=== PATIENT | female | born 1970 | race Caucasian/White ===

== ENCOUNTER 2019-05-30 09:22 | Outpatient (CLI) | payer MEDICAID, SELFPAY ==
--- NOTE | 2019-05-30 | CT_ITS ---
Radation Therapy Planning CT images; total exam DLP: 564.48 mGy-cm MTDD
--- NOTE | 2019-05-30 12:50 | ONCRAD EPV_ITS ---
Radiation Oncology Established Patient Visit Patient: GUERLINE MR#: [id number] : 1970> Age: 48> Sex: Female> Dictated by: Dr. Mumtaz Goodman Date of Service: 05/30/2019 Referring Physician(s): Dr. 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 PET/CT showed markedly FDG avid mass involving the left epiglottis extending into the left aryepiglottic fold and a prominent right level 2A cervical lymph node measuring up to 1 cm in short axis with mildly increased FDG uptake. The patient underwent ultrasound-guided FNA of bilateral cervical lymph nodes at [facility] on April 16, 2019. Pathology showed lymphoid component with no evidence for metastatic carcinoma. Therefore the staging is T2, N0, M0. She was evaluated by Dr. Alexander, head and neck surgeon at [facility]. He recommended organ preserving therapy with definitive radiation therapy and did not recommend surgical resection due to significant concern of aspiration given her COPD. The patient notes sore throat, hoarseness, dysphagia, ear pain and a mild fatigue. She denies choking, aspiration or difficulty breathing. Current Medications: Furosemide, lisinopril, metoprolol Tartrate, montelukast Sodium, potassium, spiriva HandiHaler. Allergies: Codeine Sulfate. Current Complaints / Review of Systems: Constitutional - Complains of mild fatigue. Denies lack of appetite, fever, night sweats and change in weight. Eyes - Denies blurred vision. ENMT - Complains of dysphagia and ear pain in both ears. Denies problems with hearing, mouth dryness, stomatitis, altered taste and tinnitus. Has hoarseness to the voice which is the same as when she saw us 03/27/19. Neck - Denies neck pain and swelling of the neck. Integumentary - Denies rash. Breasts - Denies pain. Cardiovascular - Denies arrhythmias, chest pain and edema. Respiratory - Complains of cough related to sinus drainage. Denies dyspnea, hemoptysis, hiccoughs and wheezing. Gastrointestinal - Denies abdominal pain, constipation, diarrhea, heartburn / dyspepsia, melena / GI bleeding, nausea and vomiting. Genitourinary (F) - Denies dysuria, frequency, nocturia, urgency, vaginal discharge / bleeding and vaginal spotting. Musculoskeletal - Denies bone pain and joint pain. Neurologic - Complains of headaches occasionally. Denies dizziness and abnormal gait. Endocrine - Denies diabetes and thyroid disease. Hematologic/Lymphatic - Denies tender or enlarged lymph nodes.. Vital Signs: Performed on 05/30/2019 9:45 AM BMI - 38.357 kg/m2 (high), Height - 61.00 in, Weight - 203.0 lbs, Temperature - 98.1 f, Pulse - 90, Respiration - 20, O2 Sat - 95 % (low), Pain - 7 and BP - 95/ 65 mm(hg). Physical Exam: General: Alert and oriented x 3. No acute distress. HEENT: Normocephalic, atraumatic. Extraocular Movements Intact: Pupils Equal, Round, Reactive to Light and Accommodation: Sclerae anicteric. Oral cavity is clear without lesions, masses or ulcers. NECK: Supple without supraclavicular or jugular lymphadenopathy. LUNGS: Decreased breath sound to auscultation bilaterally without rales, rhonchi or wheeze. HEART: Regular rate and rhythm, normal S1 and S2 without murmur, gallop or rub. MUSCULOSKELETAL: No tenderness or percussion pain over the axial skeleton, scapulae or pelvis. ABDOMEN: Soft, nontender, nondistended without masses or organomegaly. Bowel sounds are present. EXTREMITIES: No peripheral edema is identified. Limited motor and sensory examination are grossly intact and symmetric bilaterally. NEUROLOGIC: Cranial nerves II ???XII are grossly intact. Normal sensation, strength 5/5 in all extremities, normal gait, no ataxia. Performance Status: 0 - Fully active, able to carry on all predisease activities without restrictions. (ECOG) Lab: None pending. 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 Surgical resection was not recommended due to significant concern of aspiration given her COPD. Plan: I concur with the recommendation from [facility] and recommended definitive radiotherapy using DAHANCA regimen (accelerated fractionation with 6 fractions per week) according to NCCN guideline. The patient has already obtained dental clearance at [facility]. I went over the procedure for radiation therapy to the head and neck with the patient. The benefit, risks and potential side effects of radiotherapy to the head & neck were explained to the patient. The potential side effects include but not limited to fatigue, skin reaction, sore throat/mouth, nausea/vomiting, altered taste, dry mouth, lowered blood counts, hoarseness, dehydration, weight loss, compromised thyroid function, fibrosis, dental caries, swallowing impairment/aspiration, damage to the mandibular bone (osteoradionecrosis), vessels, spinal cord, brain/brain stem, hearing and esophagus, and secondary malignancy. Ms Mary expressed good understanding and decided to proceed with the recommended treatment. She has signed an informed consent. She will undergo CT simulation today. Signed by: 05/30/2019 12:49:18 PM <<Signature on File>> CPT Code: CPT Code: Signed By: Dr. Mumtaz Goodman, 05/30/2019 12:49:19 PM <<Signature on File>>
== END 2019-05-30 09:23 | disposition home or self-care (01) ==
LOC: ONCMED 09:25
PROVIDERS: Family Provider Nurse Practitioner Family; PCP Nurse Practitioner Family; Visit Provider Radiology Radiation Oncology
DX: C32.1 Malignant neoplasm of supraglottis (principal); J44.9 Chronic obstructive pulmonary disease, unspecified
CPT/HCPCS: 77263; 77290; 77334; 99215; Q9967

== ENCOUNTER 2019-06-20 05:48 | Outpatient (RCR) | payer MEDICAID, SELFPAY ==
--- NOTE | 2019-06-06 12:57 | ONCRAD TMN_ITS ---
Radiation Oncology Weekly Treatment Management Patient: Sharon Mary MR#: [id number] : 1970> Age: 48> Sex: Female Dictated by: Dr. Mumtaz Goodman Date of Service: 06/04/2019 Referring Physician(s) : Dr. 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 ID: [id number], Energy: 6X, Dose/Fx (cGy): 200, #Fx: , Dose Correction (cGy): 0, Total Dose (cGy): 200, Start Date: 06/04/2019, Elapsed Days: 0 Current Complaints/Interval History: Constitutional Denies lack of appetite, fatigue, fever, night sweats and change in weight. ENMT Complains of odynophagia, dysphagia and hoarseness. Denies ear pain, mouth dryness, stomatitis and altered taste. Neck Denies neck pain. Current Medications: Furosemide, lisinopril, metoprolol Tartrate, montelukast Sodium, potassium, spiriva HandiHaler. Allergies: Codeine Sulfate. Vital Signs: Performed on 06/04/2019 4:11 PM BMI - 38.281 kg/m2 (high), Height - 61.00 in, Weight - 202.6 lbs, Temperature - 98.8 f, Pulse - 79, Respiration - 20, O2 Sat - 97 %, Pain - 0 and BP - 114/ 73 mm(hg). Physical Exam: Appears stable, no skin erythema or desquamation. Performance Status: 0 - Fully active, able to carry on all predisease activities without restrictions. (ECOG) Lab: None pending in Radiation Oncology. Imaging: No new diagnostic imaging was performed since the last weekly treatment visit. All radiation therapy related imaging (including but not limited to CBCT generated images) was reviewed. Appropriate changes, if any, were made to assure accurate target localization. Impression/Plan: Started RT today, Tolerating treatment well. Continue treatment as planned. CPT: 44296 Signed by: Dr. Mumtaz Goodman>06/06/2019 12:55:28 PM <<Signature on File>>
--- NOTE | 2019-06-10 17:47 | ONCRAD TMN_ITS ---
Radiation Oncology Weekly Treatment Management Patient: Sharon Mary MR#: [id number] : 1970> Age: 48> Sex: Female Dictated by: Dr. Mumtaz Goodman Date of Service: 06/10/2019 Referring Physician(s) : Dr. 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 ID: [id number], Energy: 6X, Dose/Fx (cGy): 200, #Fx: / 30, Dose Correction (cGy): 0, Total Dose (cGy): 1,000, Start Date: 06/04/2019, Elapsed Days: 6 Current Complaints/Interval History: Constitutional Complains of mild fatigue. Denies lack of appetite, fever, night sweats and change in weight. ENMT Complains of sore throat, dysphagia, left ear pain and mouth dryness. Denies problems with hearing, sore mouth and altered taste. Neck Denies neck pain. Integumentary No redness to the neck Current Medications: Furosemide, lisinopril, metoprolol Tartrate, montelukast Sodium, potassium, spiriva HandiHaler. Allergies: Codeine Sulfate. Vital Signs: Performed on 06/10/2019 2:42 PM BMI - 38.357 kg/m2 (high), Height - 61.00 in, Weight - 203.0 lbs, Temperature - 97.9 f, Pulse - 88, Respiration - 20, O2 Sat - 97 %, Pain - 4 and BP - 110/ 73 mm(hg). Physical Exam: Appears stable, no skin erythema or desquamation. Performance Status: 0 - Fully active, able to carry on all predisease activities without restrictions. (ECOG) Lab: None pending in Radiation Oncology. Imaging: No new diagnostic imaging was performed since the last weekly treatment visit. All radiation therapy related imaging (including but not limited to CBCT generated images) was reviewed. Appropriate changes, if any, were made to assure accurate target localization. Impression/Plan: Tolerating treatment well with expected side effects. Continue treatment as planned. Rx: magic mouth wash CPT: 52436 Signed by: Dr. Mumtaz Goodman>06/10/2019 5:45:57 PM <<Signature on File>>
--- NOTE | 2019-06-18 16:07 | ONCRAD TMN_ITS ---
Radiation Oncology Weekly Treatment Management Patient: Sharon Mary MR#: [id number] : 1970> Age: 48> Sex: Female Dictated by: Dr. Mumtaz Goodman Date of Service: 06/18/2019 Referring Physician(s) : Dr. 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 ID: [id number], Energy: 6X, Dose/Fx (cGy): 200, #Fx: , Dose Correction (cGy): 0, Total Dose (cGy): 2,200, Start Date: 06/04/2019, Elapsed Days: 14 Current Complaints/Interval History: Constitutional Complains of severe fatigue. Complains of change in weight down 2.8 lbs. since last OTV. Denies lack of appetite but hurts to swallow, fever and night sweats. ENMT Complains of significant sore throat, dysphagia and odynophagia. Complains of mouth dryness and thick sputum hard to cough up. Complains of altered taste. Denies ear pain. Neck Complains of neck pain. Integumentary Has redness to the neck Current Medications: Furosemide, lisinopril, magic Mouthwash, metoprolol Tartrate, montelukast Sodium, potassium, spiriva HandiHaler. Allergies: Codeine Sulfate. Vital Signs: Performed on 06/18/2019 2:46 PM BMI - 37.828 kg/m2 (high), Height - 61.00 in, Weight - 200.2 lbs, Temperature - 97.9 f, Pulse - 87, Respiration - 20, O2 Sat - 97 %, Pain - 10 and BP - 118/ 75 mm(hg). Physical Exam: Appears stable, mild skin erythema w/o desquamation. Performance Status: 0 - Fully active, able to carry on all predisease activities without restrictions. (ECOG) Lab: None pending in Radiation Oncology. Imaging: No new diagnostic imaging was performed since the last weekly treatment visit. All radiation therapy related imaging (including but not limited to CBCT generated images) was reviewed. Appropriate changes, if any, were made to assure accurate target localization. Impression/Plan: Tolerating treatment well with expected side effects. Continue treatment as planned. Rx: liquid hydrocodone; continue magic mouth wash; scheduled for PEG feeding tube placement on Sunday. CPT: 01217 Signed by: Dr. Mumtaz Goodman>06/18/2019 4:06:59 PM <<Signature on File>>
== END 2019-06-20 23:59 | disposition home or self-care (01) ==
LOC: ONCMED 05:48
PROVIDERS: Family Provider Nurse Practitioner Family; PCP Nurse Practitioner Family; Visit Provider Radiology Radiation Oncology
DX: Z51.0 Encounter for antineoplastic radiation therapy (principal); C32.1 Malignant neoplasm of supraglottis; L58.0 Acute radiodermatitis; Y84.2 Radiological procedure and radiotherapy as the cause of abnormal reaction of the patient, or of later complication, without mention of misadventure at the time of the procedure; M54.2 Cervicalgia; Z79.891 Long term (current) use of opiate analgesic
CPT/HCPCS: 36591; 77014; 77280; 77300; 77301; 77336; 77338; 77386; 77427

== ENCOUNTER 2019-06-23 07:48 | Day surgery (SDC) | payer MEDICAID, SELFPAY ==
[2019-06-20 14:45] VITALS: BMI 37.5
--- NOTE | 2019-06-23 08:03 | PM.HPUD ---
H&P update H&P Update: DATE OF SURGERY/PROCEDURE: 06/23/19 DATE H&P PERFORMED: 06/16/19 H&P UPDATE INFORMATION: H&P completed within last 30 days and No changes to prior documentation PLANNED PROCEDURE: Operation Date: 06/23/19 09:10 Proposed Procedures p Gastric Tube Insertion 82886 C32.1(Not Applicable) - Moshe Bahena MD Full H&P Perinent History: Medical/Surgical History: Medical History (Updated 06/16/19 @ 13:26 by Moshe Bahena MD) COPD (chronic obstructive pulmonary disease) (Acute) Hypertension (Acute) Malignant neoplasm of supraglottis (Acute) Family History: Family History (Updated 06/16/19 @ 12:58 by Akilah Nowak RN) Denies family history of Anesthesia complication Bleeding disorder Social History: Social History Smoking and tobacco status: former smoker Quit status (tobacco): has quit using tobacco Second hand smoke exposure: Yes Alcohol intake: never Desire information about alcohol rehabilitation?: No Adopted: No Caregiver/support person: Yes Lives independently: Yes Household members: family Housing: House Marital status: Single Highest education level completed: High School Graduate service: No Current occupational status: unemployed Current occupational exposures/hazards: No Pets and animals: No History of recent travel: No Sexually active: No Current gender identity: Female Britt/Religious: Faith Special britt needs: No Agree to transfusion: No Financial difficulty paying for basics: Decline to Answer
[2019-06-23 08:11] VITALS: BP 114/80; PULSE 103; RESP 18; TEMP 37; O2SAT 94
--- NOTE | 2019-06-23 08:37 | P.ANESASSM_ITS ---
Pre-Anesthetic Assessment Pre-Anesthetic Assessment: Height/Weight: Height 1.55 m Weight 90.265 kg Temp Pulse Resp BP Pulse Ox 98.6 F 103 H 18 114/80 94 06/23/19 08:11 06/23/19 08:11 06/23/19 08:11 06/23/19 08:11 06/23/19 08:11 Preop Diagnosis: PEG Proposed Procedure: Operation Date: 06/23/19 09:10 Proposed Procedures p Gastric Tube Insertion 34098 C32.1(Not Applicable) - Moshe Bahena MD Last intake: Intake Last Liquid Date 06/23/19 Last Liquid Time 06:00 Last Solid Date 06/21/19 Last Solid Time 00:00 Social: Packs per day: 1/2 Pack years: 16 Exam: Pre-Anes Outpt Exam: alert and oriented x 3 Airway: Submandibular: Other Cervical ROM: Other MP: 3 Pulmonary: Pulmonary: COPD and Sleep apnea Comments: Home 02 2lpm x 3 months CV/HEM: CV/HEM: HTN Musc/skel: Musc/skel: Lower Back Pain Neuropsych: Neuropsych: LÓPEZ PFSH Anesthesia PFSH: Social History Smoking and tobacco status: former smoker Quit status (tobacco): has quit using tobacco Second hand smoke exposure: Yes Alcohol intake: never Desire information about alcohol rehabilitation?: No Adopted: No Caregiver/support person: Yes Lives independently: Yes Household members: family Housing: House Marital status: Single Highest education level completed: High School Graduate service: No Current occupational status: unemployed Current occupational exposures/hazards: No Pets and animals: No History of recent travel: No Sexually active: No Current gender identity: Female Britt/Hinduism: Anglican Special britt needs: No Agree to transfusion: No Financial difficulty paying for basics: Decline to Answer Data Anesthesia Cardiac Studies: No Data to Display
[2019-06-23] MEDS: sodium chloride 0.9% 1,000 ML 30 ML IV ×2 (08:57→10:02)
[2019-06-23] MEDS: lidocaine 1% INJ 20 mL SUBCUT (10:57)
[2019-06-23 11:14] VITALS: BP 119/85; PULSE 113; RESP 16; TEMP 36.9; O2SAT 97
--- NOTE | 2019-06-23 11:34 | P.OP_ITS ---
Operative Report Date of procedure: June 23, 2019 Pre-op Diagnosis: Supraglottic cancer currently on radiation with dysphagia Post-op diagnosis: same Procedure Done: Percutaneous endoscopic gastrostomy tube placement Implants: 20 Salvadorean Endovive gastrostomy tube Pathology: none sent Surgeon: Moshe Bahena Anesthesia: MAC Condition: stable Disposition: same day Procedure: The patient was taken to the Operating Room and was placed under monitored anesthesia care after antibiotic had been administered. A bite block was placed and Olympus gastroscope was introduced and advanced up to the stomach and the first portion of the duodenum. There were no abnormalities noted in the esophagus, stomach and duodenum. The site for the planned PEG was confirmed in the left upper quadrant with transillumination using gastroscope noted through the abdominal wall and indentation of the abdominal wall noted on the gastroscope. This site was marked, and total of 5 milliliters of 1% lidocaine was infiltrated. An 11-blade was used to make a stab incision. An introducer needle was passed through the abdominal wall into the gastric lumen and the needle removed and the needle removed and the sheath left behind. A guidewire was passed through the introducer needle into the gastric lumen and grasped with a snare attached to the gastroscope. The gastroscope was withdrawn along with the guidewire, which was attached to the 20-Salvadorean EndoVive PEG tube. The guidewire was then pulled through the abdominal wall along with the PEG through the mouth into the gastric lumen until the inner disc was noted to stand against the gastric wall. The gastroscope was reintroduced to confirm good position. The outer disc was then attached and the two way valve was fixed to the PEG tube. The outer disc was noted to be at 4 centimeters at the skin level. Sterile dressing and abdominal binder was placed. The patient was stable throughout the procedure.
[2019-06-23 11:43] VITALS: BP 125/77; PULSE 107; RESP 18; O2SAT 99
[2019-06-23] MEDS: cyclobenzaprine 10 mg Tablet PO (11:45)
--- NOTE | 2019-06-23 11:58 | SUR.PHASEII ---
1108: PATIENT BROUGHT BACK TO PHASE II PACU WITH NON-REBREATHER MASK AT 10 L OF O2. PT AWAKENED TO VERBAL STIMULI. COPIOUS AMOUNTS OF THICK YELLOW MUCOUS WERE ORALLY SUCTIONED. PATIENT TOLERATED WELL. O2 SATURATION WAS 100%. 1130: NON-REBREATHER MASK REMOVED AT THIS TIME. O2 GIVEN AT 3L/NC. PT TOLERATING WELL. WHEN O2 REMOVED, O2 SATURATION DECREASES TO LOW 80'S. NURSE CONTINUOUSLY AT PATIENT'S BEDSIDE TO SUCTION PATIENT AND MONITOR O2 SATURATION. 1216: PATIENT SITTING UP IN BED. O2 DECREASED TO 2L/NC. PATIENT IS QUIETLY RESTING.
== END 2019-06-23 12:54 | disposition home or self-care (01) ==
PROVIDERS: Family Provider Nurse Practitioner Family; PCP Nurse Practitioner Family; Visit Provider Surgery
PROC: (CPT 49440; principal; 2019-06-23 09:10)
DX: C32.1 Malignant neoplasm of supraglottis (principal); J44.9 Chronic obstructive pulmonary disease, unspecified; G47.30 Sleep apnea, unspecified; I10 Essential (primary) hypertension; Z87.891 Personal history of nicotine dependence
CPT/HCPCS: 49440; 12345; J0690; J2001; J2250; J2704; J3535; J7030

== ENCOUNTER 2019-07-18 05:42 | Outpatient (RCR) | payer MEDICAID, SELFPAY ==
--- NOTE | 2019-06-24 18:20 | ONCRAD TMN_ITS ---
Radiation Oncology Weekly Treatment Management Patient: Sharon Mary MR#: [id number] : 1970> Age: 48> Sex: Female Dictated by: Dr. Mumtaz Goodman Date of Service: 06/24/2019 Referring Physician(s) : Dr. 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 ID: [id number], Energy: 6X, Dose/Fx (cGy): 200, #Fx: , Dose Correction (cGy): 0, Total Dose (cGy): 2,800, Start Date: 06/04/2019, Elapsed Days: 20 Current Complaints/Interval History: Constitutional Complains of lack of appetite NPO except for liquids for 48 hours S/P PEG Tube placement. Complains of severe fatigue. Change in weight down 1.6 lbs. since last OTV. Has PEG Tube now. Denies fever and night sweats. ENMT Complains of sore throat, odynophagia, dysphagia, mouth dryness and altered taste. Denies ear pain and sore mouth. Neck Denies neck pain. Integumentary Has mild redness to the neck Respiratory Complains of cough which is non-productive. Current Medications: Furosemide, hYDROcodone-Acetaminophen, lisinopril, magic Mouthwash, metoprolol Tartrate, montelukast Sodium, potassium, spiriva HandiHaler. Allergies: Codeine Sulfate. Vital Signs: Performed on 06/24/2019 2:41 PM BMI - 37.525 kg/m2 (high), Height - 61.00 in, Weight - 198.6 lbs, Temperature - 98.5 f, Pulse - 81, Respiration - 20, O2 Sat - 99 %, Pain - 8 and BP - 125/ 86 mm(hg). Physical Exam: Appears stable, no skin erythema or desquamation. Performance Status: 1 - No physically strenuous activity, but ambulatory and able to carry out light or sedentary work (e.g. office work, light house work). (ECOG) Lab: None pending in Radiation Oncology. Imaging: No new diagnostic imaging was performed since the last weekly treatment visit. All radiation therapy related imaging (including but not limited to CBCT generated images) was reviewed. Appropriate changes, if any, were made to assure accurate target localization. Impression/Plan: Tolerating treatment well with expected side effects. Continue treatment as planned. Continue magic mouth wash. Instructed patient to continue using mouth to swallow on a daily basis while using PEG tube for nutrient supplement. CPT: 64551 Signed by: Dr. Mumtaz Goodman>06/24/2019 6:18:27 PM <<Signature on File>>
--- NOTE | 2019-06-30 | CT_ITS ---
Radation Therapy Planning CT images; total exam DLP: 832.76 mGy-cm MTDD
--- NOTE | 2019-07-01 15:29 | ONCRAD TMN_ITS ---
Radiation Oncology Weekly Treatment Management Patient: Sharon Mary MR#: [id number] : 1970> Age: 48> Sex: Female Dictated by: Dr. Mumtaz Goodman Date of Service: 07/01/2019 Referring Physician(s) : Dr. 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 ID: [id number], Energy: 6X, Dose/Fx (cGy): 200, #Fx: 18 / 30, Dose Correction (cGy): 0, Total Dose (cGy): 3,600, Start Date: 06/04/2019, Elapsed Days: 27 Current Complaints/Interval History: Constitutional Complains of moderate fatigue. Complains of change in weight down 7 lbs. since last OTV. Has a PEG tube now and puts in 4 cans Osomolite. Denies night sweats. ENMT Complains of sore throat, odynophagia, dysphagia, mouth dryness, stomatitis and altered taste. Denies ear pain or choking/aspiration. Neck Denies neck pain. Integumentary Has redness to the neck Respiratory Denies cough, dyspnea and hiccoughs. Current Medications: Cyclobenzaprine HCl, furosemide, hYDROcodone-Acetaminophen, lisinopril, magic Mouthwash, metoprolol Tartrate, montelukast Sodium, potassium, spiriva HandiHaler. Allergies: Codeine Sulfate. Vital Signs: Performed on 07/01/2019 2:41 PM BMI - 36.203 kg/m2 (high), Height - 61.00 in, Weight - 191.6 lbs, Temperature - 99.4 f, Pulse - 101, Respiration - 20, Pain - 5 and BP - 108/ 70 mm(hg). Physical Exam: Appears stable, skin erythema w/o desquamation. Performance Status: 2 - Ambulatory/capable of all self-care, unable to perform any work activities. Up and about more than 50% of waking hours. (ECOG) Lab: None pending in Radiation Oncology. Imaging: No new diagnostic imaging was performed since the last weekly treatment visit. All radiation therapy related imaging (including but not limited to CBCT generated images) was reviewed. Appropriate changes, if any, were made to assure accurate target localization. Impression/Plan: Tolerating treatment well with expected side effects. Continue treatment as planned. Continue aquaphor and magic mouth wash. I encouraged the patient to take 6 Osmolites per day to prevent from continuing losing weight CPT: [address]: [address] Mumtaz Goodman>07/01/2019 3:28:30 PM <<Signature on File>>
--- NOTE | 2019-07-08 16:28 | ONCRAD TMN_ITS ---
Radiation Oncology Weekly Treatment Management Patient: Sharon Mary MR#: [id number] : 1970> Age: 48> Sex: Female Dictated by: Dr. Mumtaz Goodman Date of Service: 07/08/2019 Referring Physician(s) : Dr. 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 ID: [id number], Energy: 6X, Dose/Fx (cGy): 200, #Fx: , Dose Correction (cGy): 0, Total Dose (cGy): 4,400, Start Date: 06/04/2019, Elapsed Days: 34 Current Complaints/Interval History: Constitutional Complains of moderate fatigue. Complains of change in weight down 2.2 lbs. since last OTV. Has PEG and puts in 5 cans of Osmolyte per day. Denies fever and night sweats. ENMT Complains of sore throat, dysphagia, odynophagia with some medications, mouth dryness and altered taste. Denies ear pain. Neck Complains of neck pain related to the skin reaction Integumentary Has burning sensation and dry desquamation to the left side of the neck with redness Respiratory Complains of a mild cough which is productive. Denies dyspnea, hemoptysis and wheezing. Current Medications: Cyclobenzaprine HCl, furosemide, hYDROcodone-Acetaminophen, lisinopril, magic Mouthwash, metoprolol Tartrate, montelukast Sodium, potassium, spiriva HandiHaler. Allergies: Codeine Sulfate. Vital Signs: Performed on 07/08/2019 3:09 PM BMI - 35.787 kg/m2 (high), Height - 61.00 in, Weight - 189.4 lbs, Temperature - 98.0 f, Pulse - 92, Respiration - 20, O2 Sat - 96 %, Pain - 8 and BP - 96/ 71 mm(hg). Physical Exam: Appears stable, no skin erythema or desquamation. Performance Status: 1 - No physically strenuous activity, but ambulatory and able to carry out light or sedentary work (e.g. office work, light house work). (ECOG) Lab: None pending in Radiation Oncology. Imaging: No new diagnostic imaging was performed since the last weekly treatment visit. All radiation therapy related imaging (including but not limited to CBCT generated images) was reviewed. Appropriate changes, if any, were made to assure accurate target localization. Impression/Plan: Tolerating treatment well with expected side effects. Continue treatment as planned. Recommended aquaphor, 1% hydrocortisone cream and topic lidocaine cream to affected skin; continue magic mouth wash; I encouraged her to have 6 cans of osmolites daily and maintain her weight during RT. CPT: 91962 Signed by: Dr. Mumtaz Goodman>07/08/2019 4:26:35 PM <<Signature on File>>
--- NOTE | 2019-07-16 14:51 | ONCRAD TMN_ITS ---
Radiation Oncology Weekly Treatment Management Patient: Sharon Mary MR#: [id number] : 1970> Age: 48> Sex: Female Dictated by: Dr. Mumtaz Goodman Date of Service: 07/16/2019 Referring Physician(s) : Dr. 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 ID: [id number], Energy: 6X, Dose/Fx (cGy): 200, #Fx: / 30, Dose Correction (cGy): 0, Total Dose (cGy): 5,600, Start Date: 06/04/2019, Elapsed Days: 42 Current Complaints/Interval History: Constitutional Complains of lack of appetite and weight loss of 3.6 lbs. since last OTV. Has PEG tube and puts in 5 bottles of Osmolite. Denies fever and night sweats. ENMT Complains of dysphagia, mouth dryness and altered taste. Denies ear pain and stomatitis. Neck Complains of neck pain which is a burning pain. Integumentary Has dry desquamation to the neck Respiratory Complains of a mild cough which is productive. Denies dyspnea and wheezing. Current Medications: Cyclobenzaprine HCl, furosemide, hYDROcodone-Acetaminophen, lisinopril, magic Mouthwash, metoprolol Tartrate, montelukast Sodium, potassium, silver sulfADIAZINE, spiriva HandiHaler. Allergies: Codeine Sulfate. Vital Signs: Performed on 07/16/2019 2:35 PM BMI - 35.107 kg/m2 (high), Height - 61.00 in, Weight - 185.8 lbs, Temperature - 98.1 f, Pulse - 100, Respiration - 20, O2 Sat - 95 % (low), Pain - 10 and BP - 96/ 64 mm(hg)(/low). Physical Exam: Appears stable, skin erythema with dry desquamation in the neck. Performance Status: 1 - No physically strenuous activity, but ambulatory and able to carry out light or sedentary work (e.g. office work, light house work). (ECOG) Lab: None pending in Radiation Oncology. Imaging: No new diagnostic imaging was performed since the last weekly treatment visit. All radiation therapy related imaging (including but not limited to CBCT generated images) was reviewed. Appropriate changes, if any, were made to assure accurate target localization. Impression/Plan: Tolerating treatment well with expected side effects. Continue treatment as planned. Continue magic mouth wash, aquaphor and hydrocortisone cream to affected skin CPT: 69829 Signed by: Dr. Mumtaz Goodman>07/16/2019 2:50:15 PM <<Signature on File>>
== END 2019-07-19 23:59 | disposition home or self-care (01) ==
LOC: ONCMED 05:42
PROVIDERS: Family Provider Nurse Practitioner Family; PCP Nurse Practitioner Family; Visit Provider Radiology Radiation Oncology
DX: Z51.0 Encounter for antineoplastic radiation therapy (principal); C32.1 Malignant neoplasm of supraglottis; L59.8 Other specified disorders of the skin and subcutaneous tissue related to radiation; Z93.1 Gastrostomy status; Z79.891 Long term (current) use of opiate analgesic
CPT/HCPCS: 77014; 77280; 77290; 77300; 77301; 77336; 77338; 77385; 77386; Q9967

== ENCOUNTER 2019-07-25 05:34 | Outpatient (RCR) | payer MEDICAID, SELFPAY ==
--- NOTE | 2019-07-21 15:45 | ONCRAD TMN_ITS ---
Radiation Oncology Weekly Treatment Management Patient: Sharon Mary MR#: [id number] : 1970 Age: 48 Sex: Female Dictated by: Dr. Mumtaz Goodman Date of Service: 07/21/2019 Referring Physician(s) : Dr. 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 ID: [id number], Energy: 6X, Dose/Fx (cGy): 200, #Fx: 30 / 30, Dose Correction (cGy): 0, Total Dose (cGy): 6,000, Start Date: 06/04/2019, End Date: 07/18/2019, Elapsed Days: 44 Course: Head Neck 2019, Treatment Site: HN 70Gy, Ref. ID: [id number], Energy: 6X, Dose/Fx (cGy): 200, #Fx: 1 / 5, Dose Correction (cGy): 0, Total Dose (cGy): 200, Start Date: 07/21/2019, Elapsed Days: 0 Current Complaints/Interval History: Constitutional Complains of lack of appetite Has PEG Tube and puts in 5 cans of Osmolite per day. Complains of moderate fatigue. Weight down 1 pound since last seen on 07/16/19. Denies fever and night sweats. ENMT Complains of sore throat, odynophagia, dysphagia, mouth dryness, and altered taste. Denies ear pain. Neck Complains of pain on the left side. Integumentary Has moist desquamation to the left side of the neck Current Medications: Cyclobenzaprine HCl, furosemide, hYDROcodone-Acetaminophen, lisinopril, magic Mouthwash, metoprolol Tartrate, montelukast Sodium, potassium, silver sulfADIAZINE, spiriva HandiHaler. Allergies: Codeine Sulfate. Vital Signs: Performed on 07/21/2019 2:41 PM BMI - 34.918 kg/m2 (high), Height - 61.00 in, Weight - 184.8 lbs, Temperature - 98.1 f, Pulse - 97, Respiration - 20, O2 Sat - 97 %, Pain - 10 and BP - 89/ 64 mm(hg)(low). Physical Exam: Appears stable, cervical skin erythema and desquamation. Performance Status: 1 - No physically strenuous activity, but ambulatory and able to carry out light or sedentary work (e.g. office work, light house work). (ECOG) Lab: None pending in Radiation Oncology. Imaging: No new diagnostic imaging was performed since the last weekly treatment visit. All radiation therapy related imaging (including but not limited to CBCT generated images) was reviewed. Appropriate changes, if any, were made to assure accurate target localization. Impression/Plan: Tolerating treatment well with expected side effects. Continue treatment as planned. Continue magic mouth wash and silvadene cream (to moisture desquamation) and aquaphor (to erythema) CPT: 82458 Signed by: Dr. Mumtaz Goodman>07/21/2019 3:43:32 PM <<Signature on File>>
== END 2019-08-19 23:59 | disposition home or self-care (01) ==
LOC: ONCMED 05:34
PROVIDERS: Family Provider Nurse Practitioner Family; PCP Nurse Practitioner Family; Visit Provider Radiology Radiation Oncology
DX: Z51.0 Encounter for antineoplastic radiation therapy (principal); C32.1 Malignant neoplasm of supraglottis; R63.0 Anorexia; Z93.1 Gastrostomy status; R63.4 Abnormal weight loss; L58.9 Radiodermatitis, unspecified; W88.1XXA Exposure to radioactive isotopes, initial encounter; Z79.891 Long term (current) use of opiate analgesic; Z79.899 Other long term (current) drug therapy
CPT/HCPCS: 77014; 77280; 77300; 77336; 77338; 77385; 77386; 77427

== ENCOUNTER 2019-08-22 14:44 | Inpatient (IN) | payer MEDICAID, SELFPAY ==
--- NOTE | 2019-08-22 12:24 | CT_ITS ---
WS: [id number] CT ABDOMEN AND PELVIS WITH AND WITHOUT CONTRAST HISTORY: ABDOMINAL WALL ABSCESS TECHNIQUE: Unenhanced 5 mm axial imaging first performed through the abdomen. Post contrast imaging t hrough the abdomen and pelvis. Oral contrast has been provided. Sagittal and coronal reformats are s ubmitted. All CT scans at [facility] use at least one of these dose optimization techniqu es: automated exposure control; mA and/or kV adjustment per patient size (includes targeted exams whe re dose is matched to clinical indication); or iterative reconstruction. CONTRAST: Omnipaque 300; 95 mL IV. DLP: 1387.54 mGy.cm COMPARISON: 03/22/2019 Lungs are clear. Small pleural tag at the LEFT base. Small hiatal hernia. Normal size liver with a few scattered hypoechoic dense nodules. These nodules are too small to charly cterize. No bile duct dilatation. Spleen is normal size. No pancreatic abnormality. Negative gallblad tess. Normal RIGHT adrenal gland. Ill-defined mass in the LEFT adrenal gland measures 1.6 x 1.1 cm wit h low attenuation. Normal kidneys. Normal aorta. PEG tube has been pulled back from the stomach lumen. PEG tube is just superficial to the anterior ab dominal wall musculature. There is a large amount of edema infiltrating in the soft tissues of the an terior abdominal wall with a large amount of infiltrating air. Ill-defined soft tissue accumulation i n the LEFT abdominal wall measures 10.9 x 2.7 cm. There is also fluid extending along the lateral LEF T abdominal wall. There is no well-organized collection. No peritoneal abscess. No free fluid or adenopathy. Normal appendix. No GI tract obstruction. Uterus and ovaries are negativ e. Increase in lumbar lordosis. Phlegmonous collection Notified Moshe Bahena MD at 08/22/2019 2:[address]/CT abdomen pelvis wo/w 00290 IMPRESSION: 1. PEG tube has been retracted into the superficial soft tissues over the LEFT abdominal wall with a large amount of fluid, edema and air. No focal well defi bull abscess. Phlegmonous collection in the LEFT abdominal wall measures 10.9 x 2.7 cm. Concern for developing cellulitis. 2. No peritoneal abscess. 3. LEFT adrenal nodule is probably an adenoma. 4. A few scattered hypodensities which are too small to characterize in the li louise.
[2019-08-22] MEDS: iohexol 300 mg/mL 50 mL Btl PO (13:03)
[2019-08-22] MEDS: iohexol 300 mg/mL 100 mL Btl IV (13:58)
[2019-08-22 14:58] VITALS: BMI 33.2
[2019-08-22 15:15] VITALS: BP 130/89; PULSE 67; RESP 24; TEMP 37.2; O2SAT 92
--- NOTE | 2019-08-22 15:18 | PC.ADMIT ---
no emailRr [id number] Admission Note: The patient,Sharon Mary,48 y/o, was given written information regarding hospital policies, unit procedures and contact persons. Patient's smoking status: former smoker.
[2019-08-22 17:45] VITALS: RESP 24
[2019-08-22] MEDS: morphine 4 mg/mL SDV 1 mL 2 MG IVP (17:45)
[2019-08-22] MEDS: piperacillin-tazobactam 3.375 GM in sodium chloride 0.9% (plus) 50 ML IV (18:32)
[2019-08-22] MEDS: famotidine 20 mg/2 mL INJ IVP (18:32)
[2019-08-22] MEDS: D5-NS 0.45% + KCL 20 mEq 20 MEQ/1,000 ML BAG 50 MEQ IV (18:32)
[2019-08-22 19:53] VITALS: BP 106/71; PULSE 111; RESP 18; TEMP 38.5; O2SAT 91
[2019-08-22] MEDS: albuterol 8 gm MDI 2 PUFF INHALATION (20:40)
[2019-08-22 20:41] VITALS: PULSE 124; RESP 18; O2SAT 93
[2019-08-22 20:46] VITALS: PULSE 123; O2SAT 94
[2019-08-22] MEDS: montelukast sodium 10 mg Tablet PO (20:50)
[2019-08-22] MEDS: HYDROcodone-acetaminophen 5-325 mg Tablet 1 TAB PO (20:50)
[2019-08-22] MEDS: sennosides 8.6 mg Tablet 17.2 MG PO (20:51)
[2019-08-22 22:43] VITALS: TEMP 37.2
[2019-08-23] VITALS (7 sets, daily range): BP systolic 97–116; BP diastolic 58–76; PULSE 99–116; RESP 16–18; TEMP 36.6–37.1; O2SAT 92–95
[2019-08-23] MEDS: HYDROcodone-acetaminophen 5-325 mg Tablet 1 TAB PO ×3 (04:32→21:32)
[2019-08-23] MEDS: famotidine 20 mg/2 mL INJ IVP ×2 (05:39→18:37)
[2019-08-23] MEDS: enoxaparin 40 mg/0.4 mL Syringe SUBCUT (05:39)
[2019-08-23] MEDS: FUROsemide 20 mg Tablet PO (05:39)
[2019-08-23 05:46] LABS: Basophils % 0.2 %; Eosinophils % 0.1 %; Hematocrit 43.7 % (37.0-47.0); Hemoglobin 14.6 g/dL (11.5-15.3); Lymphocytes # 0.5 10^3/uL (0.8-4.8); Lymphocytes % 3.8 %; Mean Corpuscular HGB Conc 33.4 g/dL (30.0-36.0); Mean Corpuscular Hemoglobin 30.3 pg (28.0-34.0); Mean Corpuscular Volume 90.7 fL (81-99); Mean Platelet Volume 9.6 fL (7.4-10.4); Monocytes # 0.5 10^3/uL (0.2-0.9); Neutrophils # 11.5 10^3/uL (1.8-7.7); Neutrophils % 91.3 %; Nucleated Red Blood Cells % 0 %; Platelet Count 250 10^3/cmm (130-400); Red Blood Count 4.82 10^6/uL (4.1-5.3); Red Cell Distribution Width 14.4 % (12.1-15.1); White Blood Count 12.6 10^3/uL (4.0-10.0)
[2019-08-23 06:07] LABS: Anion Gap 17.3 (5-19); Blood Urea Nitrogen 14 mg/dL (6-20); Calcium 9.1 mg/dL (8.5-10.5); Carbon Dioxide 24 mmol/L (22-29); Chloride 91 mmol/L (98-107); Glomerular Filtration Rate 66.5 mL/min (90-130); Glucose 184 mg/dL (65-115); Osmolality Calculated 269 mOsm/kg (285-295); Potassium 3.3 mmol/L (3.5-5.1); Sodium 129 mmol/L (136-145)
[2019-08-23] MEDS: vancomycin 1,000 MG in sodium chloride 0.9% 250 ML 250 MG IV (09:08)
[2019-08-23] MEDS: morphine 4 mg/mL SDV 1 mL 2 MG IVP (11:04)
[2019-08-23] MEDS: D5-NS 0.45% + KCL 20 mEq 20 MEQ/1,000 ML BAG 50 MEQ IV (13:37)
--- NOTE | 2019-08-23 19:45 | PM.PN ---
Subjective Subjective: Interval history: Patient is feeling a lot better, keen to go home though she was febrile overnight Vitals/I&O/Wt Last Vital Signs Temp 98.3 F 08/23/19 15:15 Pulse 103 H 08/23/19 15:15 Resp 16 08/23/19 15:15 BP 116/58 08/23/19 15:15 Pulse Ox 94 08/23/19 15:15 08/23/19 08/23/19 08/23/19 06:59 14:59 22:59 Intake Total 1684.167 / 1924.167 240 / 1924.167 Output Total 900 / 900 600 / 600 Balance -900 / -660 1084.167 / 1324.167 240 / 1324.167 Weight last 48 hrs Weight 176 lb Physical Exam Narrative: EXAM NARRATIVE: Abdomen: Erythema is improved, less tender, still has some drainage from the gastrostomy site Data : 08/24/19 05:35 08/24/19 05:35 Micro: Microbiology 08/22/19 21:25 Blood Culture - Preliminary Blood SPECIMEN COLLECTED 08/22/19 21:19 Blood Culture - Preliminary Blood SPECIMEN COLLECTED A&P Assessment and plan (1) History of percutaneous endoscopic gastrostomy: Status post removal of PEG tube which had been pulled and was located within the abdominal wall. Continue IV antibiotics for 24 more hours Continue regular diet and Osmolite Status: Acute Attestations Medical Necessity Statement*: Abdominal wall cellulitis secondary to partially dislodged gastrostomy tube Coding Level of Care Code Acute Template Inspector for Jeramy Flores Diagnoses History of percutaneous endoscopic gastrostomy Z98.890
[2019-08-23] MEDS: montelukast sodium 10 mg Tablet PO (21:29)
[2019-08-23] MEDS: vancomycin 1,000 MG in sodium chloride 0.9% 250 ML 100 MG IV (21:29)
[2019-08-24 00:41] VITALS: BP 90/68; PULSE 101; RESP 18; TEMP 36.9; O2SAT 95
[2019-08-24 04:00] VITALS: BP 110/71; PULSE 100; RESP 20; TEMP 36.9; O2SAT 94
[2019-08-24] MEDS: famotidine 20 mg/2 mL INJ IVP (05:42)
[2019-08-24] MEDS: enoxaparin 40 mg/0.4 mL Syringe SUBCUT (05:43)
[2019-08-24] MEDS: FUROsemide 20 mg Tablet PO (05:43)
[2019-08-24 06:13] LABS: Basophils % 0.3 %; Eosinophils % 0.1 %; Hematocrit 40.3 % (37.0-47.0); Hemoglobin 13.2 g/dL (11.5-15.3); Lymphocytes # 0.2 10^3/uL (0.8-4.8); Lymphocytes % 2.1 %; Mean Corpuscular HGB Conc 32.8 g/dL (30.0-36.0); Mean Corpuscular Hemoglobin 29.3 pg (28.0-34.0); Mean Corpuscular Volume 89.6 fL (81-99); Monocytes # 0.6 10^3/uL (0.2-0.9); Monocytes % 5.5 %; Neutrophils # 9.1 10^3/uL (1.8-7.7); Neutrophils % 91.4 %; Nucleated Red Blood Cells % 0 %; Platelet Count 243 10^3/cmm (130-400); Red Cell Distribution Width 14.1 % (12.1-15.1)
[2019-08-24 06:38] LABS: Anion Gap 13.9 (5-19); Blood Urea Nitrogen 10 mg/dL (6-20); Calcium 9.1 mg/dL (8.5-10.5); Carbon Dioxide 26 mmol/L (22-29); Chloride 94 mmol/L (98-107); Glomerular Filtration Rate 88.9 mL/min (90-130); Glucose 115 mg/dL (65-115); Osmolality Calculated 269 mOsm/kg (285-295); Sodium 131 mmol/L (136-145)
[2019-08-24 06:43] LABS: Potassium 2.9 mmol/L (3.5-5.1)
[2019-08-24 07:56] VITALS: BP 105/69; PULSE 73; RESP 16; TEMP 37.4; O2SAT 98
--- NOTE | 2019-08-24 09:19 | PM.PN ---
Subjective Subjective: Interval history: Patient feels a lot better, afebrile over the last 24 hours, tolerating a diet Vitals/I&O/Wt Last Vital Signs Temp 99.3 F 08/24/19 07:56 Pulse 73 08/24/19 07:56 Resp 16 08/24/19 07:56 BP 105/69 08/24/19 07:56 Pulse Ox 98 08/24/19 07:56 08/23/19 08/24/19 08/24/19 22:59 06:59 14:59 Intake Total 240 / 2644.167 720 / 2644.167 240 / 240 Output Total 0 / 950 350 / 950 1000 / 1000 Balance 240 / 1694.167 370 / 1694.167 -760 / -760 Weight last 48 hrs Weight 176 lb Physical Exam Narrative: EXAM NARRATIVE: Abdomen: Erythema significantly improved, no significant drainage Data : 08/24/19 05:35 08/24/19 05:35 Micro: Microbiology 08/22/19 21:25 Blood Culture - Preliminary Blood NEGATIVE TO DATE 08/22/19 21:19 Blood Culture - Preliminary Blood NEGATIVE TO DATE A&P Assessment and plan (1) History of percutaneous endoscopic gastrostomy: DC home today on oral antibiotics Status: Acute Attestations Medical Necessity Statement*: DC home today Coding Level of Care Code Acute Stereotyper Apprentice for Nikkog Fwrashard Diagnoses History of percutaneous endoscopic gastrostomy Z98.890
--- NOTE | 2019-08-24 09:19 | PM.DCS ---
Discharge Providers Date of Admission: 08/22/19 14:44 Date of Discharge: August 24, 2019 Attending Provider at Admission: Moshe Bahena MD Attending Provider at Discharge: Moshe Bahena MD Primary Care Provider: Joseline Avendaño Reason for Visit Reason for Visit: Reason For Visit: infection 20399/ Hospital Course Hospital Course: This is a 48-year-old female status post radiation for oropharyngeal cancer who presented to the clinic with pain redness and swelling around the gastrostomy site. A CT scan performed emergently showed tip of the gastrostomy tube in the abdominal wall with associated cellulitis. Patient is admitted to the hospital for IV antibiotics. At time of discharge her redness improved significantly, she had minimal abdominal pain and she was afebrile and hemodynamically stable. Discharge Data Data Completed and Pending: Completed Studies During Hospitalization Category Date Time Status CT abdomen pelvis wo/w 12893 Routin e Cat Scan 08/22/19 12:24 Completed Pending at discharge Category Date Time Status Basic Metabolic P tania AM LABS Lab 08/25/19 04:00 Ordered Blood Culture Sta t Lab 08/22/19 21:25 Results Complete Blood Co unt w/Auto AM LABS Lab 08/25/19 04:00 Ordered Vancomycin Trough Routine Lab 08/24/19 08:57 Received Labs from last 24 hours 08/24/19 08/24/19 05:35 05:35 WBC 10.0 RBC 4.50 Hgb 13.2 Hct 40.3 MCV 89.6 MCH 29.3 MCHC 32.8 RDW 14.1 Plt Count 243 MPV 10.0 Neut % (Auto) 91.4 Lymph % (Auto) 2.1 Charles % (Auto) 5.5 Eos % (Auto) 0.1 Baso % (Auto) 0.3 Neut # (Auto) 9.1 H Lymph # (Auto) 0.2 L Charles # (Auto) 0.6 Eos # (Auto) 0.0 Baso # (Auto) 0.0 Nucleated RBC % (a uto) 0 Nucleated RBCs # 0.0 Sodium 131 L Potassium 2.9 L Chloride 94 L Carbon Dioxide 26 Anion Gap 13.9 BUN 10 Creatinine 0.7 GFR Calculation 88.9 L Glucose 115 Calculated Osmolal ity 269 L Calcium 9.1 Vitals: Last Vital Signs Temp 99.3 F 08/24/19 07:56 Pulse 73 08/24/19 07:56 Resp 16 04/05/20 07:56 BP 105/69 08/24/19 07:56 Pulse Ox 98 08/24/19 07:56 Discharge Plan Discharge Patient Disposition: Home, Self-Care Condition: Stable Prescriptions: New Levaquin 500 mg tablet 500 mg PO DAILY 7 Days RF: 0 Continued furosemide [Lasix] 20 mg tablet 20 mg PO QAM RF: 0 potassium chloride 10 mEq capsule, extended release 10 meq PO QDAY RF: 0 montelukast 10 mg tablet 10 mg PO QDAY RF: 0 albuterol sulfate [ProAir HFA] 90 mcg/actuation HFA aerosol inhaler 2 puff INHALATION Q6H PRN (Reason: Shortness Of Breath) RF: 0 Discharge Orders: Discharge Order (Routine); Ordered 08/24/19 Ordered By: Moshe Bahena Referrals: Moshe Bahena MD [Physician] - 7-10 days (patient has ct scan at [facility] on August 31) Joseline Avendaño [Primary Care Provider] - 4-7 days (Please contact Dr. Avendaño office on Sunday to make a follow up appointment within 4-7 days. ) Discharge Diet: Usual diet Patient Instructions: Levofloxacin (By mouth), Wound Infection (DC) Activity Restrictions/Additional Instructions: cover wound with dressings once daily until drainage stops Discharge Date/Time: 08/24/19 11:11 Discharge Attestations Time Spent in Discharge Care*: less than 30 min Quality Metrics Clinical Quality Measures During this hospital stay, did patient experience: None Coding Level of Care Code Acute Synthetic Gem Press Operator for Jeramy Flores
[2019-08-24 09:24] LABS: Vancomycin Trough 19.2 ug/mL (10-15)
[2019-08-24 11:10] VITALS: BP 105/69; PULSE 73; RESP 16; TEMP 37.4; O2SAT 98
== END 2019-08-24 11:11 | disposition home or self-care (01) | DRG 395 ==
LOC: MEDSURG 14:44
PROVIDERS: Admitting Provider Surgery; Family Provider Nurse Practitioner Family; PCP Nurse Practitioner Family; Visit Provider Surgery
DX: K94.22 Gastrostomy infection (principal); Y83.9 Surgical procedure, unspecified as the cause of abnormal reaction of the patient, or of later complication, without mention of misadventure at the time of the procedure; K94.23 Gastrostomy malfunction; C06.9 Malignant neoplasm of mouth, unspecified; Z79.899 Other long term (current) drug therapy
CPT/HCPCS: 12345; 36415; 74178; 80048; 80202; 85025; 87040; 90471; 90686; 94640; 96372; 96375; J1650; J2270; J2543; J3370; J3490; J3535; J7050

== ENCOUNTER 2019-09-01 09:23 | Outpatient (CLI) | payer MEDICAID, SELFPAY ==
--- NOTE | 2019-09-01 09:34 | CT_ITS ---
WS: [id number] CT NECK TECHNIQUE: Contrast-enhanced CT of the neck with coronal and sagittal reformatted images. CLINICAL INFORMATION: MALIGNANT NEOPLASM OF SUPROGLOTTIS COMPARISON: CT neck February 24, 2019 and PET/CT March 22, 2019 DLP: 2079.[address] scans at [facility] use at least one of these dose optimization techniques: automat ed exposure control; mA and/or kV adjustment per patient size (includes targeted exams where dose is matched to clinical indication); or iterative reconstruction. FINDINGS: Since the prior examinations interval decrease in size of the enhancing supra glottic mass. Previousl y described bulky epiglottic mass has improved today with residual enhancement and thickening involvi ng the epiglottis extending into the aryepiglottic folds. Mild narrowing of the piriform sinuses. No significant solid enhancing components today. Findings appear mainly to be due to treatment-related c hanges however a small amount of residual neoplasm is difficult to entirely excluded and recommend in terval follow-up and/or further evaluation with PET/CT. Parotid glands are normal. Normal submandibular glands. Paranasal sinuses and mastoid air cells are w ell aerated. Normal posterior fossa. No cervical lymphadenopathy today. Lung apices are normal. CT/CT neck w con* [id number] IMPRESSION: 1. Significant interval improvement in the previously described supraglottic a nd epiglottic mass. No significant solid enhancing components today. Residual t hickening and peripheral enhancement involving the treatment area likely due to treatment-related changes. Small amount of residual neoplasm difficult to excl ude. 2. No evidence of disease progression. 3. No cervical lymphadenopathy today. 4. No other significant findings.
[2019-09-01] MEDS: iohexol 300 mg/mL 100 mL Btl IV (10:41)
== END 2019-09-01 09:24 | disposition home or self-care (01) ==
LOC: RADWPI 09:27
PROVIDERS: Family Provider Nurse Practitioner Family; PCP Nurse Practitioner Family; Visit Provider Radiology Radiation Oncology
DX: C32.1 Malignant neoplasm of supraglottis (principal)
CPT/HCPCS: 70491; Q9967

== ENCOUNTER 2019-09-01 09:28 | Outpatient (CLI) | payer MEDICAID, SELFPAY ==
--- NOTE | 2019-09-01 09:32 | CT_ITS ---
WS: [id number] CT ABDOMEN CONTRAST TECHNIQUE: Contrast enhanced CT of the abdomen with coronal and sagittal reformatted images. CLINICAL INFORMATION: HISTORY OF PEG TUBE COMPARISON: August 22, 2019 DLP: 699.[address] scans at [facility] use at least one of these dose optimization techniques: automat ed exposure control; mA and/or kV adjustment per patient size (includes targeted exams where dose is matched to clinical indication); or iterative reconstruction. FINDINGS: Since the prior examination, the PEG tube has been removed. Progression of the air-fluid collection i n the left superficial soft tissues left abdominal wall, since the prior examination. Fluid collectio n demonstrates peripheral enhancement with scattered pockets of air. Fluid collection measures approx imately 5.8 x 11.7 x 7.1 CM. Surrounding cellulitis has improved. Findings are suspicious for abscess. No intraperitoneal fluid collections. Stomach is normal in appea any with residual visualized tube tract. No evidence of oral contrast extravasation. A few tiny low-attenuation lesions in the liver too small to characterize. Gallbladder is contracted. Normal spleen. Normal pancreas. Stable left adrenal adenoma measuring 1.5 cm. Normal right adrenal gland. Normal renal parenchymal enhancement. No hydronephrosis. Normal calib er abdominal aorta. Lung bases are well aerated. Normal lumbar spine. Notified Danie Hinton MD at 09/01/2019 1:[address]/CT abdomen w con* [id number] IMPRESSION: 1. Interval removal of the previous described PEG tube with peripherally enhan cing fluid collection left abdominal wall with pockets of air. Suspected absces s measures 11.7 x 5.7 x 7.1 CM. 2. Oral contrast in the stomach. No evidence of contrast extravasation 3. Stable left adrenal adenoma measuring 1.5 CM. 4. A few tiny low-attenuation lesions in the liver likely hepatic cysts but to o small to characterize. 5. Normal renal parenchymal enhancement. No hydronephrosis. 6. Gallbladder is contracted.
[2019-09-01] MEDS: iohexol 300 mg/mL 100 mL Btl IV (10:42)
[2019-09-01] MEDS: iohexol 300 mg/mL 50 mL Btl PO (10:42)
== END 2019-09-01 09:29 | disposition home or self-care (01) ==
PROVIDERS: Family Provider Nurse Practitioner Family; PCP Nurse Practitioner Family; Visit Provider Surgery
DX: Z87.898 Personal history of other specified conditions (principal); Z98.890 Other specified postprocedural states; Z46.59 Encounter for fitting and adjustment of other gastrointestinal appliance and device; D35.02 Benign neoplasm of left adrenal gland; K76.9 Liver disease, unspecified
CPT/HCPCS: 74160; Q9967

== ENCOUNTER 2019-09-04 14:31 | Outpatient (CLI) | payer MEDICAID, SELFPAY ==
[2019-09-04 15:46] LABS: Basophils % 0.5 %; Eosinophils % 0.5 %; Hematocrit 47.7 % (37.0-47.0); Lymphocytes # 0.7 10^3/uL (0.8-4.8); Lymphocytes % 8.1 %; Mean Corpuscular HGB Conc 31.4 g/dL (30.0-36.0); Mean Corpuscular Hemoglobin 29.4 pg (28.0-34.0); Mean Corpuscular Volume 93.5 fL (81-99); Mean Platelet Volume 9.4 fL (7.4-10.4); Monocytes # 0.6 10^3/uL (0.2-0.9); Monocytes % 6.9 %; Neutrophils # 7.1 10^3/uL (1.8-7.7); Neutrophils % 83.1 %; Nucleated Red Blood Cells % 0 %; Platelet Count 459 10^3/cmm (130-400); Red Cell Distribution Width 14.5 % (12.1-15.1); White Blood Count 8.6 10^3/uL (4.0-10.0)
--- NOTE | 2019-09-04 17:16 | ECG_ITS ---
Measurements Intervals [place] Rate: 105 P: 68 MA: 137 QRS: 68 QRSD: 97 T: 51 QT: 332 QTc: 439 SINUS TACHYCARDIA POSSIBLE LEFT ATRIAL ENLARGEMENT [-0.1mV P WAVE IN V1/V2] SEPTAL MYOCARDIAL INFARCTION [40+ ms Q WAVE IN V1/V2], OF INDETERMINATE AGE Compared to ECG 02/24/2019 14:50:24 Myocardial infarct finding now present Sinus rhythm no longer present Electronically Signed On 09-04-2019 21:00:26 CDT by Brenda Morris M.D. [email or web address] rees
== END 2019-09-04 14:32 | disposition home or self-care (01) ==
LOC: RT 14:33
PROVIDERS: Family Provider Nurse Practitioner Family; PCP Nurse Practitioner Family; Visit Provider Specialist
DX: Z01.810 Encounter for preprocedural cardiovascular examination (principal); I21.29 ST elevation (STEMI) myocardial infarction involving other sites
CPT/HCPCS: 36415; 85025; 93005

== ENCOUNTER → 2019-10-23 11:03 | Outpatient (BNVA) | payer MEDICAID, SELFPAY | PROVIDERS: Family Provider Nurse Practitioner Family; PCP Nurse Practitioner Family; Referring Provider Nurse Practitioner Family; Visit Provider Nurse Practitioner Family | DX: R06.02 Shortness of breath (principal); J06.9 Acute upper respiratory infection, unspecified; R06.03 Acute respiratory distress; J44.9 Chronic obstructive pulmonary disease, unspecified; I50.9 Heart failure, unspecified | CPT/HCPCS: 71046 ==

== ENCOUNTER 2019-12-02 20:08 | Emergency (ER) | payer MEDICAID, SELFPAY ==
[2019-12-02 20:10] VITALS: BP 91/66; PULSE 100; RESP 16; TEMP 36.7; O2SAT 96; BMI 22.4
[2019-12-02 20:23] VITALS: BMI 29.7
--- NOTE | 2019-12-02 20:55 | XRR_ITS ---
PROCEDURE INFORMATION: Exam: XR Chest, 1 View Exam date and time: 12/02/2019 9:41 PM Age: 49 years old Clinical indication: Shortness of breath; Prior surgery; Patient HX: HX of throat CA; Additional info: Chest pain, SOB TECHNIQUE: Imaging protocol: XR of the chest Views: 1 view. COMPARISON: CR XR chest 2V* [id number] 10/23/2019 11:20 AM FINDINGS: Lungs: Emphysema Subtle opacity right upper lobe. Lungs are otherwise well aerated. Pleural space: Unremarkable. No pleural effusion. No pneumothorax. Heart/Mediastinum: Unremarkable. No cardiomegaly. Bones/joints: Unremarkable. XR/XR chest 1V portable [id number] IMPRESSION: Subtle opacity right upper lobe. Lungs are otherwise well aerated.
--- NOTE | 2019-12-02 20:55 | ECG_ITS ---
[facility] Test Date: 2019-12-02 Pat Name: Sharon Mary Department: Room: Gender: Female Face Painter: : 1970 Requested By: Chantel Rebolledo Order Number: [id number] Brandon MD: Brenda Morris M.D. Measurements Intervals Zap Rate: 106 P: 68 SD: 130 QRS: 57 QRSD: 96 T: 44 QT: 362 QTc: 481 Interpretive Statements SINUS TACHYCARDIA POSSIBLE RIGHT ATRIAL ENLARGEMENT [0.25mV P WAVE] POSSIBLE LEFT ATRIAL ENLARGEMENT [-0.1mV P WAVE IN V1/V2] SEPTAL MYOCARDIAL INFARCTION , OF INDETERMINATE AGE [40+ ms Q WAVE IN V1/V2] Compared to ECG 09/04/2019 15:21:09 No significant changes Electronically Signed On 12-03-2019 16:51:36 CDT by Brenda Morris M.D. [email or web address]
--- NOTE | 2019-12-02 21:18 | ED_ITS ---
HPI - SOB/Dyspnea General: Chief Complaint: Shortness of Breath/Dyspnea Stated Complaint: sob; increased bronchitis sx Time Seen by Provider: 12/02/19 20:59 Source: patient Mode of arrival: ambulatory Limitations: no limitations History of Present Illness: HPI Narrative: Patient is a very nice 49-year-old female here for complaints of shortness of breath and difficulty breathing. Patient tells me she has a history of COPD requiring 2L continuous O2. She has not had to increase this. Patient tells me over the past 2 weeks she has been on 2 different rounds of antibiotics prescribed by her PCP and does not seem to be improving. She complains of subjective fevers. She has no known sick contacts or no known COVID exposure. Patient tells me she is having swelling to her lower extremities and states she cannot lie flat which is abnormal for her. She does take a furosemide due to fluid overload. She has no known diagnosis of CHF. Patient reports a productive cough. She has chronic hoarseness due to throat cancer. Last radiation treatment was in July. She is not having any throat pain or difficulty swallowing. MD elicited complaint: shortness of breath and cough Pertinent past history: COPD Timing: constant Severity: moderate Exacerbating factors: lying flat and exertion Relieving factors: nothing Known history of: COPD Associated symptoms: Reports chest congestion, fever(s) (subjective) and orthopnea; Deny abdominal pain, chest pain, extremity pain, hemoptysis, lightheadedness, nausea, palpitations, syncope or vomiting Review of Systems Const: Reports: fever(s) (subjective); Denies: chills, body aches, fatigue or malaise Eyes: Denies: change in vision, blurry vision, photophobia, floaters or seeing flashes ENMT: Reports: hoarseness (chronic from radiation); Denies: throat pain, odynophagia or nasal congestion Card: Reports: swelling of feet/ankles, dyspnea on exertion and orthopnea; Denies: chest pain, palpitations, irregular heart rhythm, edema, lightheadedness, syncope or pre-syncope Resp: Reports: dyspnea, productive cough and chest congestion; Denies: hemoptysis GI: Denies: abdominal pain, nausea, vomiting or diarrhea Musc: Reports: back pain (reports pain in her back with inhalation ); Denies: neck pain, extremity pain, extremity swelling, joint pain or joint swelling Neuro: Denies: headache(s), numbness in extremities, weakness in extremities or sensory changes PFSH ED PFSH: Medical History (Updated 12/03/19 @ 02:46 by KAYLYN Ortiz) COPD (chronic obstructive pulmonary disease) Hypertension Malignant neoplasm of supraglottis Surgical History History of ankle surgery (~2005) History of oral surgery History of percutaneous endoscopic gastrostomy Family History Denies family history of Anesthesia complication Bleeding disorder Social History Smoking and tobacco status: former smoker Quit status (tobacco): has quit using tobacco Second hand smoke exposure: Yes Alcohol intake: never Desire information about alcohol rehabilitation?: No Adopted: No Caregiver/support person: Yes Lives independently: Yes Household members: family Housing: House Marital status: Single Highest education level completed: High School Graduate service: No Current occupational status: unemployed Current occupational exposures/hazards: No Pets and animals: No History of recent travel: No Sexually active: No Current gender identity: Female Britt/Yazdanism: Sikhism Special britt needs: No Agree to transfusion: No Financial difficulty paying for basics: Decline to Answer Female Reproductive History: Date of last menstrual period: 11/08/19 Physical Exam Const: COMMON NORMALS: no acute distress, patient oriented x3, no limitations and alert HENMT: COMMON NORMALS: normocephalic and atraumatic HEAD & SCALP: normocephalic and atraumatic OTHER: chronic hoarseness Neck/C-Spine: COMMON NORMALS: full ROM and no lymphadenopathy Resp: EFFORT & INSPECTION: Yes labored AUSCULTATION: rhonchi (scattered ) and wheezes inspiratory wheezes and throughout Cardio: COMMON NORMALS: regular rate and regular rhythm RATE: regular rate RHYTHM: regular rhythm GI: COMMON NORMALS: Normal to inspection, nondistended, normoactive bowel sounds present, Soft to palpation, non-tender, No hepatosplenomegaly present and no masses PALPATION: Yes Soft to palpation and Yes No hepatosplenomegaly present Extremity: GENERAL: Yes normal exam except as noted OTHER: mild bilateral non-pitting edema Neuro: SRINIVASAN COMA SCALE: document GCS findings [place] coma scale eye opening: Spontaneous Srinivasan coma scale verbal response: Orientated Srinivasan coma scale motor response: Obey commands [place] coma scale total score: 15 COMMON NORMALS: patient oriented x3 SENSORIUM/ORIENTATION: Yes alert Skin: COMMON NORMALS: no rashes or lesions noted GENERAL SKIN EXAM: no rashes or lesions noted Course Vital Signs: Vital signs: Vital Signs Temperature 98.1 F 12/02/19 20:10 Pulse Rate 105 H 12/02/19 23:24 Respiratory Rate 18 12/02/19 23:28 Blood Pressure 127/89 12/02/19 23:28 Pulse Oximetry 95 12/02/19 23:28 MDM - SOB/Dyspnea MDM Narrative: Medical decision making narrative: Patient states she feels better after IV steroids and DuoNeb. She continues to remain tachycardic-up into the 120s at times. Her ABG shows a bicarb of 78. I have spoken to patient about the need for hospitalization however patient is persistent and would like to go home. Initial troponin was 20 with a delta of 0.08. EKG w/o ischemic changes. BNP is elevated at 637 with no previous comparisons. I did give patient a small amount of Lasix here along with potassium. Will obtain COVID testing as an outpatient although I think this is a low possibility. Clinically patient with COPD exacerbation. CTA shows no PE. She does have L lung nodule and possible osseous rib lesion-given hx of her throat cancer and smoking hx she needs close follow up with this. She is satting normal on her regular 2L O2 but when she falls asleep she desats into the 70s. She tells me at home she wears a mask at night as she is a mouth breather . I pleaded with patient several times trying to get her to stay and telling her she needs to be placed on bipap however patient again adamately refuses and wants to go home. She states she has PCP appointment tomorrow morning that she will go to for follow up. Lab Data: Labs: Lab Results 12/02/19 12/02/19 12/02/19 Range/Units 21:15 21:15 21:15 WBC 8.3 (4.0-10.0) 10^3/ uL RBC 5.22 (4.1-5.3) 10^6/u L Hgb 15.7 H (11.5-15.3) g/dL Hct 50.2 H (37.0-47.0) % MCV 96.2 (81-99) fL MCH 30.1 (28.0-34.0) pg MCHC 31.3 (30.0-36.0) g/dL RDW 13.4 (12.1-15.1) % Plt Count 258 (130-400) 10^3/c mm MPV 9.0 (7.4-10.4) fL Neut % (Auto) 84.3 % Lymph % (Auto) 7.6 % [place] % (Auto) 7.1 % Eos % (Auto) 0.7 % Baso % (Auto) 0.1 % Neut # (Auto) 6.96 (1.8-7.7) 10^3/u L Lymph # (Auto) 0.6 L (0.8-4.8) 10^3/u L [place] # (Auto) 0.6 (0.2-0.9) 10^3/u L Eos # (Auto) 0.1 (0.0-0.8) 10^3/u L Baso # (Auto) 0.0 (0.0-0.1) 10^3/u L Nucleated RBC % (a uto) 0 % Nucleated RBCs # 0.0 /100WBC Specimen Type Sample Site ABG pH (7.35-7.45) ABG pCO2 (35-45) mmHg ABG pO2 (80.0-100.0) mmH g ABG HCO3 (22-26) mmol/L ABG O2 Saturation ABG Base Excess (-2.0-2.0) mmol/ L Alvin Test A-a O2 Gradient Hematocrit (37-47) % Hgb O2 Saturation (95-100) % Carboxyhemoglobin (0.4-20.1) %THgb Methemoglobin (0.4-1.5) % Total Hemoglobin (12-16) g/dL Ionized Calcium (1.1-1.4) mmol/L O2 Delivery Device O2 Liters/Min % Social Security Assessor ID Sodium 132 L (136-145) mmol/L Potassium 3.1 L (3.5-5.1) mmol/L Chloride 84 L (98-107) mmol/L Carbon Dioxide 35 H (22-29) mmol/L Anion Gap 16.1 (5-19) BUN 13 (6-20) mg/dL Creatinine 0.7 (0.5-0.9) mg/dL GFR Calculation 88.6 L (90-130) mL/min Glucose 101 (65-115) mg/dL Calculated Osmolal ity 270 L (285-295) mOsm/k g Lactic Acid 0.6 (0.5-2.2) mmol/L Calcium 9.7 (8.5-10.5) mg/dL Total Bilirubin 0.3 (0.15-1.2) mg/dL AST 38 H (0-32) U/L ALT 41 H (0-33) U/L Alkaline Phosphata se 100 (35-105) IU/L Troponin T Baselin e (0-10) ng/L Troponin T 120 Min [place] (0-10) ng/L Delta Troponin T (0-10) ABS# NT-Pro-B Natriuret Pep 637 H (0-125) pg/mL Total Protein 7.1 (6.6-8.7) g/dL Albumin 4.1 (3.5-5.2) g/dL Globulin 3.0 (1.3-4.6) g/dL 12/02/19 12/02/19 12/02/19 Range/Units 21:15 22:49 23:01 WBC (4.0-10.0) 10^3/ uL RBC (4.1-5.3) 10^6/u L Hgb (11.5-15.3) g/dL Hct (37.0-47.0) % MCV (81-99) fL MCH (28.0-34.0) pg MCHC (30.0-36.0) g/dL RDW (12.1-15.1) % Plt Count (130-400) 10^3/c mm MPV (7.4-10.4) fL Neut % (Auto) % Lymph % (Auto) % [place] % (Auto) % Eos % (Auto) % Baso % (Auto) % Neut # (Auto) (1.8-7.7) 10^3/u L Lymph # (Auto) (0.8-4.8) 10^3/u L [place] # (Auto) (0.2-0.9) 10^3/u L Eos # (Auto) (0.0-0.8) 10^3/u L Baso # (Auto) (0.0-0.1) 10^3/u L Nucleated RBC % (a uto) % Nucleated RBCs # /100WBC Specimen Type Arterial Sample Site Radial, right ABG pH 7.34 L (7.35-7.45) ABG pCO2 78.1 H* (35-45) mmHg ABG pO2 65.1 L (80.0-100.0) mmH g ABG HCO3 41.7 H (22-26) mmol/L ABG O2 Saturation 94.0 ABG Base Excess 11.6 H (-2.0-2.0) mmol/ L Alvin Test Pos A-a O2 Gradient Not Reportable Hematocrit 48.8 H (37-47) % Hgb O2 Saturation 81.5 L (95-100) % Carboxyhemoglobin 12.7 (0.4-20.1) %THgb Methemoglobin 0.6 (0.4-1.5) % Total Hemoglobin 15.9 (12-16) g/dL Ionized Calcium 1.2 (1.1-1.4) mmol/L O2 Delivery Device Nc O2 Liters/Min 3.0 % Social Security Assessor ID [email or web address] Sodium 135.0 (136-145) mmol/L Potassium 3.3 L (3.5-5.1) mmol/L Chloride (98-107) mmol/L Carbon Dioxide (22-29) mmol/L Anion Gap (5-19) BUN (6-20) mg/dL Creatinine (0.5-0.9) mg/dL GFR Calculation (90-130) mL/min Glucose 105.0 (65-115) mg/dL Calculated Osmolal ity (285-295) mOsm/k g Lactic Acid (0.5-2.2) mmol/L Calcium (8.5-10.5) mg/dL Total Bilirubin (0.15-1.2) mg/dL AST (0-32) U/L ALT (0-33) U/L Alkaline Phosphata se (35-105) IU/L Troponin T Baselin e 20 H (0-10) ng/L Troponin T 120 Min [place] 20.08 H (0-10) ng/L Delta Troponin T 0.08 (0-10) ABS# NT-Pro-B Natriuret Pep (0-125) pg/mL Total Protein (6.6-8.7) g/dL Albumin (3.5-5.2) g/dL Globulin (1.3-4.6) g/dL Imaging Data^: CTA Chest: Radiologist's impression: [place] [address] CT Scan Report Signed Patient: Sharon Mary Unit #: [id number] : 1970 Age/Sex: 49 / F ADM Date: 12/02/19 Loc: ER Room/Bed: Attending Dr: Ordering Provider/Ordering MD: Chantel Rebolledo Date of Service: 12/02/19 Procedure(s): CT angio chest PE protcl [id number] Accession Number(s): [id number] Report Number: [id number] PROCEDURE INFORMATION: Exam: CT Angiography Chest With Contrast Exam date and time: 12/02/2019 11:02 PM Age: 49 years old Clinical indication: Shortness of breath and tachypnea; Prior surgery; Patient HX: HX throat CA; Additional info: SOB, tachycardia, pleuric pain TECHNIQUE: Imaging protocol: Computed tomographic angiography of the chest with intravenous contrast. 3D rendering: MIP and/or 3D reconstructed images were created by the technologist. Radiation optimization: All CT scans at this facility use at least one of these dose optimization techniques: automated exposure control; mA and/or kV adjustment per patient size (includes targeted exams where dose is matched to clinical indication); or iterative reconstruction. Contrast material: OMNI 350; Contrast volume: 80 ml; Contrast route: INTRAVENOUS (IV); COMPARISON: CR XR chest 1V portable [id number] 2019-12-02 21:31 RADIATION DOSE METRICS: Total DLP (mGy-cm): 630.13 FINDINGS: Pulmonary arteries: Normal. No pulmonary emboli. Aorta: Unremarkable. No aortic aneurysm. No aortic dissection. Lungs: Scattered mucous plugging. Dependent subsegmental pulmonary atelectasis. Left costophrenic 8 mm noncalcified pulmonary nodule, recommend follow-up. Pleural space: Unremarkable. No pneumothorax. No pleural effusion. Heart: Unremarkable. No cardiomegaly. No pericardial effusion. Lymph nodes: Unremarkable. No enlarged lymph nodes. Adrenals: Left adrenal gland thickening. Stomach and bowel: Gastric wall thickening Bones/joints: Multiple chronic healed rib fractures. Left 7th lateral rib fracture with some lucency and adjacent pleural thickening, appears more recent, could reflect an underlying osseous lesion. T11 mild chronic compression fracture. T9 and T10 vertebral fusion. Soft tissues: Unremarkable. CT/CT angio chest PE protcl [id number] IMPRESSION: 1. Scattered mucous plugging. 2. Left 7th lateral rib fracture with some lucency and adjacent pleural thickening, appears more recent, could reflect an underlying osseous lesion. 3. Left costophrenic 8 mm noncalcified pulmonary nodule, recommend follow-up. COMMENTS: As per Fleischner Society guidelines for follow-up and management of pulmonary nodules: For patients at low risk (minimal or absent history of smoking and of other known risk factors), recommend initial follow-up chest CT at 6-12 months then at 18-24 months if no change. For patient at high risk (history of smoking or of other known risk factors), recommend initial follow-up chest CT at 3-6 months, then at 9-12 and 24 months if no change. Radiation Dose CTDIVOL = (mGy): DLP = 630.13 (mGy-cm) Dictated By: Haroldo Best MD Signed By: Haroldo Best MD Signed Date/Time: 12/03/19235 DD/ 4 Discharge Plan Discharge Patient Disposition: Home, Self-Care Clinical Impression: Acute hypercapnic respiratory failure, Acute exacerbation of chronic obstructive pulmonary disease Condition: Stable Prescriptions: New prednisone 10 mg tablet 60 mg PO DAILY 5 Days Qty: 30 RF: 0 No Action furosemide [Lasix] 20 mg tablet 20 mg PO QAM RF: 0 potassium chloride 10 mEq capsule, extended release 10 meq PO QDAY RF: 0 montelukast 10 mg tablet 10 mg PO QDAY RF: 0 albuterol sulfate [ProAir HFA] 90 mcg/actuation HFA aerosol inhaler 2 puff INHALATION Q6H PRN (Reason: Shortness Of Breath) RF: 0 cyclobenzaprine 10 mg tablet 10 mg PO TID PRN (Reason: muscle spasm) Qty: 30 RF: 0 Discharge Orders: Discharge Order (Routine); Ordered 12/03/19 Ordered By: Chantel Rebolledo Referrals: Joseline Avendaño [Primary Care Provider] - Patient Instructions: Chronic Obstructive Pulmonary Disease (ED) Activity Restrictions/Additional Instructions: As we have discussed I have encouraged you to stay in the hospital several times and HIGHLY recommended that you stay however you would like to go home. I will place you on oral steroids. You have indicated you have a follow-up appointment with primary care tomorrow. You need to return to the emergency department immediately for worsening shortness of breath, difficulty breathing, chest pains. As we have discussed your CT chest revealed a left pulmonary nodule that needs to be followed up with through primary care. There was also a questionable area on your left seventh rib that could reflect an underlying osseous lesion. Again given your history of throat cancer this needs to be followed up closely through primary care. Coding Level of Care Code ED Pack Press Operator for Jeramy Fwd Exam Comprehensive
[2019-12-02 21:28] LABS: Basophils % 0.1 %; Eosinophils # 0.1 10^3/uL (0.0-0.8); Eosinophils % 0.7 %; Hematocrit 50.2 % (37.0-47.0); Hemoglobin 15.7 g/dL (11.5-15.3); Lymphocytes # 0.6 10^3/uL (0.8-4.8); Lymphocytes % 7.6 %; Mean Corpuscular HGB Conc 31.3 g/dL (30.0-36.0); Mean Corpuscular Hemoglobin 30.1 pg (28.0-34.0); Mean Corpuscular Volume 96.2 fL (81-99); Monocytes # 0.6 10^3/uL (0.2-0.9); Monocytes % 7.1 %; Neutrophils # 6.96 10^3/uL (1.8-7.7); Neutrophils % 84.3 %; Nucleated Red Blood Cells % 0 %; Platelet Count 258 10^3/cmm (130-400); Red Blood Count 5.22 10^6/uL (4.1-5.3); Red Cell Distribution Width 13.4 % (12.1-15.1); White Blood Count 8.3 10^3/uL (4.0-10.0)
--- NOTE | 2019-12-02 21:38 | PC.NURSE ---
EKG done at 2125 and shown to ER doctor
[2019-12-02 21:55] LABS: Lactic Sepsis W/Reflex 0.6 mmol/L (0.5-2.2)
[2019-12-02 21:57] LABS: Troponin(5th) Baseline 20 ng/L (0-10)
[2019-12-02 22:02] LABS: Alanine Aminotransferase 41 U/L (0-33); Albumin Level 4.1 g/dL (3.5-5.2); Alkaline Phosphatase 100 IU/L (35-105); Anion Gap 16.1 (5-19); Aspartate Amino Transferase 38 U/L (0-32); Blood Urea Nitrogen 13 mg/dL (6-20); Calcium 9.7 mg/dL (8.5-10.5); Carbon Dioxide 35 mmol/L (22-29); Chloride 84 mmol/L (98-107); Glomerular Filtration Rate 88.6 mL/min (90-130); Glucose 101 mg/dL (65-115); NT Pro B Type Natriuretic Pept 637 pg/mL (0-125); Osmolality Calculated 270 mOsm/kg (285-295); Potassium 3.1 mmol/L (3.5-5.1); Sodium 132 mmol/L (136-145); Total Bilirubin 0.3 mg/dL (0.15-1.2); Total Protein 7.1 g/dL (6.6-8.7)
[2019-12-02 22:36] VITALS: BP 151/90; PULSE 108; RESP 24; O2SAT 99
--- NOTE | 2019-12-02 22:54 | CTR_ITS ---
PROCEDURE INFORMATION: Exam: CT Angiography Chest With Contrast Exam date and time: 12/02/2019 11:02 PM Age: 49 years old Clinical indication: Shortness of breath and tachypnea; Prior surgery; Patient HX: HX throat CA; Additional info: SOB, tachycardia, pleuric pain TECHNIQUE: Imaging protocol: Computed tomographic angiography of the chest with intravenous contrast. 3D rendering: MIP and/or 3D reconstructed images were created by the technologist. Radiation optimization: All CT scans at this facility use at least one of these dose optimization techniques: automated exposure control; mA and/or kV adjustment per patient size (includes targeted exams where dose is matched to clinical indication); or iterative reconstruction. Contrast material: OMNI 350; Contrast volume: 80 ml; Contrast route: INTRAVENOUS (IV); COMPARISON: CR XR chest 1V portable [id number] 2019-12-02 21:31 RADIATION DOSE METRICS: Total DLP (mGy-cm): 630.13 FINDINGS: Pulmonary arteries: Normal. No pulmonary emboli. Aorta: Unremarkable. No aortic aneurysm. No aortic dissection. Lungs: Scattered mucous plugging. Dependent subsegmental pulmonary atelectasis. Left costophrenic 8 mm noncalcified pulmonary nodule, recommend follow-up. Pleural space: Unremarkable. No pneumothorax. No pleural effusion. Heart: Unremarkable. No cardiomegaly. No pericardial effusion. Lymph nodes: Unremarkable. No enlarged lymph nodes. Adrenals: Left adrenal gland thickening. Stomach and bowel: Gastric wall thickening Bones/joints: Multiple chronic healed rib fractures. Left 7th lateral rib fracture with some lucency and adjacent pleural thickening, appears more recent, could reflect an underlying osseous lesion. T11 mild chronic compression fracture. T9 and T10 vertebral fusion. Soft tissues: Unremarkable. CT/CT angio chest PE protcl [id number] IMPRESSION: 1. Scattered mucous plugging. 2. Left 7th lateral rib fracture with some lucency and adjacent pleural thickening, appears more recent, could reflect an underlying osseous lesion. 3. Left costophrenic 8 mm noncalcified pulmonary nodule, recommend follow-up. COMMENTS: As per Fleischner Society guidelines for follow-up and management of pulmonary nodules: For patients at low risk (minimal or absent history of smoking and of other known risk factors), recommend initial follow-up chest CT at 6-12 months then at 18-24 months if no change. For patient at high risk (history of smoking or of other known risk factors), recommend initial follow-up chest CT at 3-6 months, then at 9-12 and 24 months if no change. Radiation Dose CTDIVOL = (mGy): DLP = 630.13 (mGy-cm)
[2019-12-02 23:10] LABS: Troponin 5 2HR 20.08 ng/L (0-10); Troponin 5 2HR Delta 0.08 ABS# (0-10)
[2019-12-02 23:13] LABS: ABG PH Result 7.34 (7.35-7.45); Arterial Blood Gas Hematocrit 48.8 % (37-47); Base Excess ABG 11.6 mmol/L (-2.0-2.0); Blood Gas Allen Test Pos; Blood Gas Sample Site Radial, right; Blood Gas Sample Type Arterial; Carboxyhemoglobin 12.7 %THgb (0.4-20.1); HCO3 ABG 41.7 mmol/L (22-26); HGB O2 Sat 81.5 % (95-100); Ionized Calcium Level - ABG 1.2 mmol/L (1.1-1.4); Methemoglobin 0.6 % (0.4-1.5); Oxygen Device NC; PO2 ABG 65.1 mmHg (80.0-100.0); Potassium Level - ABG 3.3 mmol/L (3.5-5.0); Total Hemoglobin 15.9 g/dL (12-16)
[2019-12-02 23:24] VITALS: PULSE 105; RESP 20; O2SAT 95
[2019-12-02] MEDS: ipratropium-albuterol 3 mL Neb INHALATION (23:24)
[2019-12-02 23:28] VITALS: BP 127/89; RESP 18; O2SAT 95
[2019-12-02 23:57] LABS: ABG PCO2 78.1 mmHg (35-45)
[2019-12-03] MEDS: FUROsemide 10 mg/mL SDV 4mL 40 MG IVP (01:31)
[2019-12-03] MEDS: potassium chloride ER 10 mEq Tablet 40 MEQ PO (01:31)
[2019-12-03] MEDS: iohexol 350 mg/mL 100 mL Btl IV (01:38)
--- NOTE | 2019-12-03 02:42 | PC.NURSE ---
EKG done at 0238 and shown to Er doctor
--- NOTE | 2019-12-03 02:55 | ECG_ITS ---
[facility] Test Date: 2019-12-03 Pat Name: Sharon Mary Department: Room: Gender: Female Physician [facility]: : 1970 Requested By: Chantel Rebolledo Order Number: [id number] Taylor MD: Brenda Morris M.D. Measurements Intervals [place] Rate: 117 P: 64 NC: 96 QRS: 67 QRSD: 93 T: 45 QT: 309 QTc: 432 Interpretive Statements SINUS TACHYCARDIA WITH SHORT NC INTERVAL POSSIBLE LEFT ATRIAL ENLARGEMENT [-0.1mV P WAVE IN V1/V2] SEPTAL MYOCARDIAL INFARCTION , OF INDETERMINATE AGE [40+ ms Q WAVE IN V1/V2] Compared to ECG 12/02/2019 21:33:08 Short NC interval now present Myocardial infarct finding still present Electronically Signed On 12-03-2019 17:03:21 CDT by Brenda Morris M.D. [email or web address]
[2019-12-03 03:35] VITALS: PULSE 120; RESP 20; O2SAT 93
[2019-12-04 20:05] LABS: Quest SARS-CoV-2 RNA NOT DETECTED (NOT DETECTED)
== END 2019-12-03 03:36 | disposition home or self-care (01) ==
PROVIDERS: Emergency Provider Physician Assistant; Family Provider Nurse Practitioner Family; PCP Nurse Practitioner Family
DX: J44.1 Chronic obstructive pulmonary disease with (acute) exacerbation (principal); J96.02 Acute respiratory failure with hypercapnia; Z87.891 Personal history of nicotine dependence; I10 Essential (primary) hypertension; Z85.21 Personal history of malignant neoplasm of larynx
CPT/HCPCS: 12345; 36415; 36600; 71045; 71275; 80051; 80053; 82810; 83605; 83880; 83986; 84484; 85025; 87040; 87635; 93005; 94640; 96374; 96375; 99283; 99284; J1940; J2930; Q9967

== ENCOUNTER 2019-12-09 12:06 | Outpatient (CLI) | payer MEDICAID, SELFPAY ==
[2019-12-09 12:36] LABS: Basophils % 0.3 %; Eosinophils % 0.3 %; Hematocrit 51.6 % (37.0-47.0); Hemoglobin 15.7 g/dL (11.5-15.3); Lymphocytes # 0.6 10^3/uL (0.8-4.8); Lymphocytes % 9.2 %; Mean Corpuscular HGB Conc 30.4 g/dL (30.0-36.0); Mean Corpuscular Hemoglobin 30.2 pg (28.0-34.0); Mean Corpuscular Volume 99.2 fL (81-99); Mean Platelet Volume 9.3 fL (7.4-10.4); Monocytes # 0.5 10^3/uL (0.2-0.9); Monocytes % 7.6 %; Neutrophils # 5.62 10^3/uL (1.8-7.7); Neutrophils % 82.3 %; Nucleated Red Blood Cells % 0 %; Platelet Count 236 10^3/cmm (130-400); Red Cell Distribution Width 13.4 % (12.1-15.1); White Blood Count 6.8 10^3/uL (4.0-10.0)
[2019-12-09 13:16] LABS: Alanine Aminotransferase 41 U/L (0-33); Albumin Level 3.7 g/dL (3.5-5.2); Alkaline Phosphatase 88 IU/L (35-105); Aspartate Amino Transferase 40 U/L (0-32); Blood Urea Nitrogen 22 mg/dL (6-20); Calcium 9.3 mg/dL (8.5-10.5); Chloride 89 mmol/L (98-107); Globulin 3.2 g/dL (1.3-4.6); Glomerular Filtration Rate 88.6 mL/min (90-130); Glucose 114 mg/dL (65-115); Osmolality Calculated 280 mOsm/kg (285-295); Sodium 136 mmol/L (136-145); Total Bilirubin 0.3 mg/dL (0.15-1.2); Total Protein 6.9 g/dL (6.6-8.7)
[2019-12-09 13:51] LABS: Carbon Dioxide 41 mmol/L (22-29)
== END 2019-12-09 12:07 | disposition home or self-care (01) ==
LOC: LAB 12:09
PROVIDERS: PCP Nurse Practitioner Family; Visit Provider Internal Medicine Pulmonary Disease
DX: F17.200 Nicotine dependence, unspecified, uncomplicated (principal); R91.1 Solitary pulmonary nodule; J44.9 Chronic obstructive pulmonary disease, unspecified
CPT/HCPCS: 36415; 80053; 85025

== ENCOUNTER 2019-12-12 21:43 | Inpatient (IN) | payer MEDICAID, SELFPAY ==
[2019-12-12 22:13] VITALS: BP 157/83; PULSE 110; RESP 14; TEMP 36.6; O2SAT 83; BMI 31.7
--- NOTE | 2019-12-12 22:53 | XRR_ITS ---
PROCEDURE INFORMATION: Exam: XR Chest, 1 View Exam date and time: 12/12/2019 10:54 PM Age: 49 years old Clinical indication: Shortness of breath; Patient HX: SOB and hoarsness x 2 days. TECHNIQUE: Imaging protocol: XR of the chest Views: 1 view. COMPARISON: CR XR chest 1V portable [id number] 12/02/2019 9:31 PM FINDINGS: Lungs: Right hilar to upper lobe atelectasis versus infiltrate. Pleural space: Unremarkable. No pleural effusion. No pneumothorax. Heart/Mediastinum: Cardiomegaly. Bones/joints: Unremarkable. XR/XR chest 1V portable [id number] IMPRESSION: 1. Right hilar to upper lobe atelectasis versus infiltrate. 2. Cardiomegaly.
--- NOTE | 2019-12-12 22:54 | ECG_ITS ---
[facility] Test Date: 2019-12-12 Pat Name: Sharon Mary Department: Room: ICU02 Gender: Female Timber Sizer: edwar [place]: 1970 Requested By: Jesús Bauer Order Number: [id number] Brandon MD: Brenda Morris M.D. Measurements Intervals [place] Rate: 103 P: 72 CA: 130 QRS: 81 QRSD: 89 T: 51 QT: 333 QTc: 436 Interpretive Statements SINUS TACHYCARDIA POSSIBLE RIGHT ATRIAL ENLARGEMENT [0.25mV P WAVE] LEFT ATRIAL ENLARGEMENT [-0.15mV P WAVE IN V1/V2] SEPTAL MYOCARDIAL INFARCTION [40+ ms Q WAVE IN V1/V2], OF INDETERMINATE AGE Compared to ECG 12/03/2019 02:38:42 Short CA interval no longer present Myocardial infarct finding still present Electronically Signed On 12-14-2019 12:46:46 CDT by Brenda Morris M.D. [email or web address]
[2019-12-12 23:15] VITALS: PULSE 108; RESP 17; O2SAT 96
[2019-12-12] MEDS: ipratropium-albuterol 3 mL Neb INHALATION (23:15)
[2019-12-12 23:20] VITALS: PULSE 104
[2019-12-12 23:21] VITALS: O2SAT 95
[2019-12-12 23:25] LABS: ABG PCO2 84.6 mmHg (35-45); ABG PH Result 7.21 (7.35-7.45); Base Excess ABG 2.3 mmol/L (-2.0-2.0); Blood Gas Allen Test Pos; Blood Gas Sample Type Arterial; HCO3 ABG 33.5 mmol/L (22-26)
[2019-12-12 23:26] LABS: Arterial Blood Gas Hematocrit 46.6 % (37-47); Blood Gas Sample Site Radial, right; Oxygen Device NC
[2019-12-12 23:27] LABS: Carboxyhemoglobin 8.8 %THgb (0.4-20.1); HGB O2 Sat 93.6 % (95-100); Total Hemoglobin 15.1 g/dL (12-16)
[2019-12-12 23:30] VITALS: BP 143/90; PULSE 101; PULSE 104; RESP 15; RESP 18; O2SAT 93; O2SAT 96
[2019-12-12] MEDS: FUROsemide 10 mg/mL SDV 10mL 60 MG IVP (23:34)
[2019-12-12 23:45] LABS: Basophils % 0.2 %; Eosinophils % 0.2 %; Hematocrit 51.7 % (37.0-47.0); Hemoglobin 15.5 g/dL (11.5-15.3); Lymphocytes # 0.7 10^3/uL (0.8-4.8); Lymphocytes % 7.9 %; Mean Corpuscular Hemoglobin 29.8 pg (28.0-34.0); Mean Corpuscular Volume 99.4 fL (81-99); Mean Platelet Volume 9.5 fL (7.4-10.4); Monocytes # 0.6 10^3/uL (0.2-0.9); Monocytes % 7.1 %; Neutrophils # 7.31 10^3/uL (1.8-7.7); Neutrophils % 84.1 %; Nucleated Red Blood Cells % 0 %; Platelet Count 307 10^3/cmm (130-400); Red Cell Distribution Width 13.5 % (12.1-15.1); White Blood Count 8.7 10^3/uL (4.0-10.0)
[2019-12-13] VITALS (62 sets, daily range): BP systolic 98–152; BP diastolic 56–90; PULSE 73–104; RESP 10–16; TEMP 37.1–38.8; O2SAT 73–98
[2019-12-13 00:03] LABS: NT Pro B Type Natriuretic Pept 2325 pg/mL (0-125)
[2019-12-13 00:04] LABS: Troponin(5th) Baseline 20 ng/L (0-10)
[2019-12-13 00:21] LABS: Lactic Sepsis W/Reflex 0.4 mmol/L (0.5-2.2)
--- NOTE | 2019-12-13 00:32 | PM.HP ---
Providers/Chief Complaint Primary Care Provider: Joseline Avendaño Chief Complaint: low o2 History of Present Illness Sharon Mary is a 49 year old female who carries history of supraglottic cancer status post radiation therapy, oxygen dependent COPD 2 L oxygen dependent, lung nodule, chronic smoker,l came in today for worsening shortness of breath. Patient was seen 2 nights ago in the ER for shortness of breath, CT was done to rule out PE, COVID test negative, she was prescribed prednisone patient did not want to stay in the hospital and was discharged home. Today she came back with worsening of her symptoms. At the time of my evaluation patient was really confused and obtunded however on giving painful stimuli she woke up and told me that she decided to come to the hospital because of worsening shortness of breath, he is currently smoking half pack a day she has been noticing copious amount of sputum production with her cough. She lives alone. She told me that she wanted to use bedside commode. I asked ER nurse to help her out while she was on the BiPAP settings 22/10 with tidal volume of 600, I left the room to examine the patient and came back after 5 minutes. At this point she was really not able to answer my questions she was really drowsy, repeat blood gas showed mild improvement in PCO2. Decision has been made to intubate her because of her mental status. I have requested Dr. Lemon for endotracheal intubation. EKG showing sinus tachycardia, no hypoxia however she is getting supplemental oxygen, BNP 2300, lactic acid 0.4 troponin baseline 20 2 nights ago CTA chest revealed scattered mucus plugging with lucency around left rib area with possibility of metastasis to bone, on review of previous imaging she also had hypodense lesion around her liver Review of Systems General: Reports: ROS unobtainable due to medical condition (Hypercapnic delirium) Medications/Allergies Home Medications Medication Instructions Recorded Confirmed Last Taken Type furosemide 20 mg tablet 20 mg PO QAM 06/16/19 12/09/19 06/21/19 History montelukast 10 mg tablet 10 mg PO QDAY 06/16/19 12/09/19 06/22/19 History potassium chloride 10 mEq 10 meq PO QDAY 06/16/19 12/09/19 06/21/19 History capsule,extended release albuterol sulfate 90 mcg/actuation 2 puff INHALATION Q6H PRN 08/22/19 12/09/19 Unknown History aerosol inhaler cyclobenzaprine 10 mg tablet 10 mg PO TID PRN #30 tab 09/03/19 12/09/19 Unknown Rx acetazolamide 500 mg 500 mg PO DAILY #5 cap 12/09/19 12/09/19 Unknown Rx capsule,extended release ipratropium 0.5 mg-albuterol 3 mg 3 ml INHALATION Q4H PRN 12/09/19 12/09/19 Unknown History (2.5 mg base)/3 mL nebulization soln budesonide-formoterol HFA 80 2 puff INHALATION BID #10.2 gm 12/11/19 12/11/19 Unknown Rx mcg-4.5 mcg/actuation aerosol inhaler tiotropium bromide 2.5 2 puff INHALATION DAILY #4 gm 12/11/19 12/11/19 Unknown Rx mcg/actuation mist for inhalation Allergies Allergy/AdvReac Type Severity Reaction Status Date / Time codeine Allergy Severe ALGY-Anaphy Verified 12/09/19 10:53 laxis PFSH Acute PFSH: Medical History (Updated 12/13/19 @ 02:16 by Abdi Prasad MD) COPD (chronic obstructive pulmonary disease) Oxygen dependent COPD Hypertension Liver lesion Hypodense lesion seen on CT abdomen Malignant neoplasm of supraglottis Status post radiation Surgical History (Updated 12/13/19 @ 02:16 by Abdi Prasad MD) History of ankle surgery (~2005) History of oral surgery History of percutaneous endoscopic gastrostomy Removal of PEG tube Family History Denies family history of Anesthesia complication Bleeding disorder Social History Smoking and tobacco status: former smoker Quit status (tobacco): has quit using tobacco Year quit tobacco: 2020 - 0.5PPD x 20 Years Second hand smoke exposure: Yes Alcohol intake: never Desire information about alcohol rehabilitation?: No Adopted: No Caregiver/support person: Yes Lives independently: Yes Household members: family Housing: House Marital status: Single Highest education level completed: High School Graduate service: No Current occupational status: unemployed Current occupational exposures/hazards: No Pets and animals: No History of recent travel: No Sexually active: No Current gender identity: Female Britt/Scientologist: Mor[employer] Special britt needs: No Agree to transfusion: No Financial difficulty paying for basics: Decline to Answer Female Reproductive History: Date of last menstrual period: 11/08/19 Vitals/I&O/Wt Last Vital Signs Temp 97.9 F 12/12/19 22:13 Pulse 101 H 12/12/19 23:30 Resp 18 12/12/19 23:30 BP 143/90 12/12/19 23:30 Pulse Ox 96 12/12/19 23:30 Weight last 48 hrs Weight 76.204 kg Physical Exam Narrative: EXAM NARRATIVE: Head to toe examination Obese female very obtunded currently on BiPAP with drooling of saliva which is very copious I have requested ER physician to intubate her for her worsening mentation When I gave her sternal rub she woke up and gave me above-mentioned detail Diminished breath sounds bilaterally Assisted breath sounds, Hoarseness of voice S1, S2 mild signs of CHF exacerbation with trace edema of lower extremities Distended abdomen without any pain Patient is not able to follow commands because of her somnolent state Hyperemic conjunctiva bilaterally Patient appears to have cushingoid appearance She went up to use bedside commode without any difficulty Data : 12/12/19 23:30 Micro: Microbiology 12/13/19 00:02 Blood Culture - Preliminary Blood SPECIMEN COLLECTED 12/12/19 23:30 Blood Culture - Preliminary Blood SPECIMEN COLLECTED A&P Assessment and plan (1) Acute hypercapnic respiratory failure: Status: Acute (2) Smoker: Status: Acute (3) Respiratory failure: Status: Acute (4) Malignant neoplasm of supraglottis: Status: Acute (5) New onset of congestive heart failure: Status: Acute Additional A&P Information Acute hypercapnic respiratory failure with underlying chronic hypoxic hypercarbic restaurant failure Recently she has been prescribed acetazolamide by circus trainer Dr Wilson for metabolic alkalosis CT done recently ruled out PE showed scattered mucus plugging Copious secretions noticed No leukocytosis, she is afebrile, she is high risk for mucous plugging and pneumonia development I would start her on vancomycin and Zosyn considering her immunocompromise state For worsening mentation for her hypercapnia, will intubate in the ER Patient did not tolerate BiPAP very well New onset CHF No previous diagnosis of congestive heart failure, high BNP with mild clinical signs of CHF I would use low-dose Lasix at this point Echo in the morning EKG is not showing ischemic or infarctive changes, troponin not significantly high Metabolic alkalosis She has chronic metabolic alkalosis which has gotten worse due to acute hypercapnia I would avoid use of acetazolamide at this point because of her respiratory acidosis Supraglottic cancer Patient is status post radiation finished her radiation cycles in August She was scheduled for biopsy by ENT surgeon for monitoring of recurrence of cancer CT chest is showing hyperlucency of left rib area and previous CT abdomen is showing hypodense liver lesion, high suspicion for metastatic disease Full code DVT prophylaxis Lovenox GI prophylaxis Protonix Diet via feeding tube Attestations Medical Necessity Statement*: Anticipating stay in the hospital course more than 2 midnights currently need intubation for hypercapnic restaurant failure in the ICU Time Spent in Patient Care: (>than 50% of time spent in counselling and/or direct pt care on unit). 60mins Coding Level of Care Code Acute [employer] Mechanic for Chg Fwd Diagnoses Acute hypercapnic respiratory failure J96.02 Smoker F17.200 Respiratory failure J96.90 Malignant neoplasm of supraglottis C32.1 New onset of congestive heart failure I50.9
--- NOTE | 2019-12-13 00:35 | ED_ITS ---
HPI - SOB/Dyspnea General: Chief Complaint: Shortness of Breath/Dyspnea Stated Complaint: low o2 Time Seen by Provider: 12/12/19 22:42 History of Present Illness: HPI Narrative: 49-year-old female with a history of COPD, was here 2 days ago with similar symptoms. Provider wanted her to stay and be admitted at that point, but she chose to go home. She has had increasing shortness of breath. She has had a semi-productive cough. Denies fever. She has been wheezing. She is also noticed some swelling in her legs. MD elicited complaint: shortness of breath Pertinent past history: COPD Onset (ago): day(s) Context: recent illness Severity: moderate Exacerbating factors: exertion Relieving factors: nothing Known history of: COPD Associated symptoms: Reports cough; Deny abdominal pain, chest pain, dizziness, fever(s) or nausea Treatment prior to arrival: oxygen and bronchodilator Review of Systems Const: Denies: fever(s) Eyes: Denies: change in vision or blurry vision ENMT: Denies: swelling of lips/tongue, bleeding gums, dental pain, change in hearing, epistaxis, post nasal drip or sinus pain Card: Denies: chest pain Resp: Reports: dyspnea, productive cough and wheezing; Denies: non-productive cough GI: Denies: abdominal pain or nausea : Denies: dysuria or hematuria Musc: Denies: neck pain or back pain Skin/Breast: Denies: rash, pruritus or erythema Neuro: Denies: headache(s), dizziness or vertigo Psych: Denies: anxiety PFS ED PFSH: Medical History (Updated 12/14/19 @ 02:34 by Jesús Lemon DO) COPD (chronic obstructive pulmonary disease) Oxygen dependent COPD Hypertension Liver lesion Hypodense lesion seen on CT abdomen Malignant neoplasm of supraglottis Status post radiation Surgical History (Updated 12/13/19 @ 02:16 by Abdi Prasad MD) History of ankle surgery (~2005) History of oral surgery History of percutaneous endoscopic gastrostomy Removal of PEG tube Family History Denies family history of Anesthesia complication Bleeding disorder Social History Smoking and tobacco status: former smoker Quit status (tobacco): has quit using tobacco Year quit tobacco: 2020 - 0.5PPD x 20 Years Second hand smoke exposure: Yes Alcohol intake: never Desire information about alcohol rehabilitation?: No Adopted: No Caregiver/support person: Yes Lives independently: Yes Household members: family Housing: House Marital status: Single Highest education level completed: High School Graduate service: No Current occupational status: unemployed Current occupational exposures/hazards: No Pets and animals: No History of recent travel: No Sexually active: No Current gender identity: Female Britt/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 Special britt needs: No Agree to transfusion: No Financial difficulty paying for basics: Decline to Answer Female Reproductive History: Date of last menstrual period: 11/08/19 Physical Exam Const: GENERAL APPEARANCE: well developed and lethargic ORIENTATION/CONSCIOUSNESS: Yes oriented to person, Yes oriented to place, Yes oriented to time and Yes lethargic HENMT: COMMON NORMALS: normocephalic, external ears normal and Normal external nose present HEAD & SCALP: normocephalic; no scalp tenderness FACE & SINUS: normal facial exam NOSE: Normal external nose present and No nasal discharge present EXTERNAL EAR: Yes external ears normal MOUTH: tongue normal Eye: COMMON NORMALS: Equal, round and reactive pupils present, EOMs intact bilaterally and conjunctivae normal EYELID: eyelids normal CONJUNCTIVA: Yes conjunctivae normal PUPIL: Yes Equal, round and reactive pupils present Neck/C-Spine: GENERAL: No tracheal deviation Chest: COMMONS NORMALS: normal inspection of the chest CHEST: No tenderness Resp: EFFORT & INSPECTION: Yes tachypneic, Yes respiratory distress, No retractions, Yes uses accessory muscles and No tracheal deviation AUSCULTATION: rhonchi, wheezes and diminished lung sounds Cardio: COMMON NORMALS: regular rhythm RATE: tachycardic RHYTHM: regular rhythm HEART SOUNDS: no murmurs PERIPHERAL PULSES: radial pulses present GI: INSPECTION: No abdominal distension AUSCULTATION: No Hyperactive bowel sounds present and No Hypoactive bowel sounds present PALPATION: No Guarding due to palpation present (GI) and No Rigid due to palpation PERCUSSION: no dullness to percussion and no tympanic to percussion Neuro: SENSORIUM/ORIENTATION: Yes oriented to person, Yes oriented to place, Yes oriented to time and Yes lethargic Psych: COMMON NORMALS: mental status grossly normal Skin: COMMON NORMALS: no rashes or lesions noted GENERAL SKIN EXAM: no rashes or lesions noted Procedures Intubation Time out performed: No sedative: Etomidate Mg Given: 20 paralytic: Succinylcholine Course Vital Signs: Vital signs: Vital Signs Temperature 99.1 F 12/14/19 02:04 Pulse Rate 84 12/14/19 02:04 Respiratory Rate 14 12/14/19 02:04 Blood Pressure 135/70 12/14/19 02:04 Pulse Oximetry 93 12/14/19 02:04 MDM - SOB/Dyspnea MDM Narrative: Medical decision making narrative: 49-year-old female with a history of COPD. She was here couple of days ago, and wanted to go home, the provider tried to convince her to stay. She has had increasing shortness of breath. She was drowsy on exam, but appropriate. Her blood gas showed significant respiratory acidosis. Despite this, she was conversant, and trying to drink a soda. She was placed on BiPAP. After an hour and 1/2 to 2 hours on BiPAP, she was no better. In fact she was more somnolent. Blood gas showed minimal improvement. At this point we electively intubated her without complication. She will go to the ICU. She is received steroids as well as antibiotics here in the ER and bronchodilators. She was tested for coronavirus and found to be negative previously. Lab Data: Labs: Lab Results 12/12/19 12/12/19 12/12/19 Range/Units 23:14 23:30 23:30 WBC 8.7 (4.0-10.0) 10^3/ uL RBC 5.20 (4.1-5.3) 10^6/u L Hgb 15.5 H (11.5-15.3) g/dL Hct 51.7 H (37.0-47.0) % MCV 99.4 H (81-99) fL MCH 29.8 (28.0-34.0) pg MCHC 30.0 (30.0-36.0) g/dL RDW 13.5 (12.1-15.1) % Plt Count 307 (130-400) 10^3/c mm MPV 9.5 (7.4-10.4) fL Neut % (Auto) 84.1 % Lymph % (Auto) 7.9 % Monroe % (Auto) 7.1 % Eos % (Auto) 0.2 % Baso % (Auto) 0.2 % Neut # (Auto) 7.31 (1.8-7.7) 10^3/u L Lymph # (Auto) 0.7 L (0.8-4.8) 10^3/u L Monroe # (Auto) 0.6 (0.2-0.9) 10^3/u L Eos # (Auto) 0.0 (0.0-0.8) 10^3/u L Baso # (Auto) 0.0 (0.0-0.1) 10^3/u L Nucleated RBC % (a uto) 0 % Nucleated RBCs # 0.0 /100WBC Specimen Type Arterial Sample Site Radial, right ABG pH 7.21 L (7.35-7.45) ABG pCO2 84.6 H* (35-45) mmHg ABG pO2 120.0 H (80.0-100.0) mmH g ABG HCO3 33.5 H (22-26) mmol/L ABG Base Excess 2.3 H (-2.0-2.0) mmol/ L Alvin Test Pos Hematocrit 46.6 (37-47) % Hgb O2 Saturation 93.6 L (95-100) % Carboxyhemoglobin 8.8 (0.4-20.1) %THgb Total Hemoglobin 15.1 (12-16) g/dL O2 Delivery Device Nc O2 Liters/Min 3.0 % Supervisor [employer] ID [email or web address] Lactic Acid (0.5-2.2) mmol/L Troponin T Baselin e (0-10) ng/L NT-Pro-B Natriuret Pep 2325 H (0-125) pg/mL 12/12/19 12/13/19 Range/Units 23:30 00:02 WBC (4.0-10.0) 10^3/ uL RBC (4.1-5.3) 10^6/u L Hgb (11.5-15.3) g/dL Hct (37.0-47.0) % MCV (81-99) fL MCH (28.0-34.0) pg MCHC (30.0-36.0) g/dL RDW (12.1-15.1) % Plt Count (130-400) 10^3/c mm MPV (7.4-10.4) fL Neut % (Auto) % Lymph % (Auto) % Monroe % (Auto) % Eos % (Auto) % Baso % (Auto) % Neut # (Auto) (1.8-7.7) 10^3/u L Lymph # (Auto) (0.8-4.8) 10^3/u L Monroe # (Auto) (0.2-0.9) 10^3/u L Eos # (Auto) (0.0-0.8) 10^3/u L Baso # (Auto) (0.0-0.1) 10^3/u L Nucleated RBC % (a uto) % Nucleated RBCs # /100WBC Specimen Type Sample Site ABG pH (7.35-7.45) ABG pCO2 (35-45) mmHg ABG pO2 (80.0-100.0) mmH g ABG HCO3 (22-26) mmol/L ABG Base Excess (-2.0-2.0) mmol/ L Alvin Test Hematocrit (37-47) % Hgb O2 Saturation (95-100) % Carboxyhemoglobin (0.4-20.1) %THgb Total Hemoglobin (12-16) g/dL O2 Delivery Device O2 Liters/Min % Supervisor Feed House ID Lactic Acid 0.4 L (0.5-2.2) mmol/L Troponin T Baselin e 20 H (0-10) ng/L NT-Pro-B Natriuret Pep (0-125) pg/mL Critical Care Time Critical Care Time: Critical Care Time: Yes Total Critical Care Time: 45 Attestation: This case had a high probability of a clinically significant, sudden, or life threatening deterioration of this patient's condition which required my full and direct attention, intervention and personal management. Discharge Plan Discharge Patient Disposition: Admitted As Inpatient Admit Provider: Abdi Prasad Clinical Impression: Acute hypercapnic respiratory failure COPD (chronic obstructive pulmonary disease) Qualifiers: COPD type: COPD with acute exacerbation Qualified Code(s): J44.1 - Chronic obstructive pulmonary disease with (acute) exacerbation Condition: Stable Interventions: ED Discharge Assessment Last Done: 12/13/19 03:02 ED Charges Last Done: 12/13/19 03:05 Discharge Date/Time: 12/13/19 04:26 Coding Level of Care Code ED Movie Star for Chg Fwd Exam Comprehensive
[2019-12-13 01:31] LABS: ABG PCO2 80.5 mmHg (35-45); ABG PH Result 7.22 (7.35-7.45); Arterial Blood Gas Hematocrit 48.7 % (37-47); Base Excess ABG 2.3 mmol/L (-2.0-2.0); Blood Gas Allen Test Pos; Blood Gas Sample Site Radial, right; Blood Gas Sample Type Arterial; HCO3 ABG 33.1 mmol/L (22-26); Oxygen Device BIPAP
[2019-12-13 01:38] LABS: Troponin 5 2HR 18.71 ng/L (0-10)
[2019-12-13] MEDS: levofloxacin-dextrose 5 % 750 MG/150 ML PREMIX 100 MG IV (02:02)
[2019-12-13] MEDS: midazolam 1 mg/mL INJ 2 mL 4 MG IVP (02:03)
[2019-12-13] MEDS: succinylcholine 20 mg/mL SDV 10mL 100 MG IVP (02:06)
[2019-12-13 02:11] LABS: Troponin 5 2HR Delta -1.29 ABS# (0-10)
[2019-12-13] MEDS: propofol 1,000 MG/100 ML INJ 2.3 MG (02:13)
[2019-12-13] MEDS: fentaNYL 50 mcg/mL INJ 2mL 100 MCG IVP (02:32)
--- NOTE | 2019-12-13 03:05 | USCV_ITS ---
Sharon Mary Age: 49 Gender: F : 1970 Exam Date: 12/13/2019 08:15 Ordering Phys: Abdi Prasad MD Technologist: Estefania Medina [place] [facility] [place]: CHF New onset BP: 116 / 66 HR: 79 Rhythm: Sinus Technical Quality: Fair MEASUREMENTS (Male / Female) Normal Values 2D ECHO LV Diastolic Diameter PLAX 5.0 cm 4.2 - 5.9 / 3.9 - 5.3 cm LV Systolic Diameter PLAX 3.5 cm LV Chamber Size 4.1 cm IVS Diastolic Thickness 1.1 cm 0.6 - 1.0 / 0.6 - 0.9 cm IVS Systolic Thickness 1.4 cm LVPW Diastolic Thickness 0.9 cm 0.6 - 1.0 / 0.6 - 0.9 cm LVPW Systolic Thickness 1.4 cm RV Chamber Size 3.0 cm LVOT Diameter 1.9 cm LV Ejection Fraction 2D Teich 57.1 % LV Ejection Fraction MOD 2C 63.0 % LV Ejection Fraction 2C AL 64.3 % LA Diameter 3.6 cm LA Width 3.0 cm LA Height 5.1 cm RA Width 2.0 cm RA Height 4.5 cm Aorta at Sinotubular Diameter 2.1 cm M-MODE LV Diastolic Diameter MM 5.3 cm 4.2 - 5.9 / 3.9 - 5.3 cm LV Systolic Diameter MM 3.6 cm LV Ejection Fraction MM Teich 61.4 % IVS Diastolic Thickness MM 0.9 cm 0.6 - 1.0 / 0.6 - 0.9 cm IVS Systolic Thickness MM 1.0 cm LVPW Diastolic Thickness MM 1.0 cm 0.6 - 1.0 / 0.6 - 0.9 cm LVPW Systolic Thickness MM 1.6 cm RV Diastolic Diameter MM 2.6 cm Aortic Annulus Diameter 2.6 cm LA Ao Ratio MM 1.4 MV E Point Septal Separation 0.7 cm DOPPLER AV Peak Velocity 202.0 cm/s LVOT Peak Velocity 134.0 cm/s AV Area Cont Eq vti 1.8 cm squared AV Area Cont Eq pk 1.8 cm squared MV Area PHT 4.4 cm squared Mitral E to A Ratio 1.1 MV E' Velocity 12.0 cm/s Mitral E to MV E' Ratio 9.0 Mitral E to LV E' Lateral Ratio 7.9 Mitral E to LV E' Septal Ratio 10.6 TR Peak Velocity 255.0 cm/s TR Peak Gradient 26.1 mmHg TV Peak E Velocity 36.0 cm/s Right Atrial Pressure 15.0 mmHg Pulmonary Artery Systolic Pressu 41.0 mmHg PV Peak Velocity 95.0 cm/s RV Acceleration Time 0.1 s RV Ejection Time 0.2 s RV AcT/ET 0.3 FINDINGS Left Ventricle Normal left ventricular cavity size. Normal left ventricular systolic function. Left ventricular ejection fraction is estimated at 59 %. No diagnostic regional wall motion abnormalities. Normal diastolic function. Right Ventricle Normal right ventricular size and systolic function. Right ventricular systolic pressure 41 mmHg. Right Atrium Normal right atrial size. Left Atrium Mildly increased left atrial size. Mitral Valve Mildly thickened mitral valve. Trace mitral valve regurgitation. Aortic Valve Aortic valve not well visualized. No aortic valve stenosis. No aortic valve regurgitation. Tricuspid Valve Structurally normal tricuspid valve. Trace tricuspid valve regurgitation. Pulmonic Valve Pulmonic valve not well visualized. No pulmonary valve stenosis. Pericardium No pericardial effusion. Aorta Normal-sized aortic root. Dilated inferior vena cava with no respiratory variations (on vent). CONCLUSIONS 1. This is a technically difficult study. 2. Normal left ventricular cavity size and systolic function. Left ventricular ejection fraction is estimated at 59 %. No diagnostic regional wall motion abnormalities. Normal diastolic function. 3. Normal right ventricular size and systolic function. 4. No prior similar studies to compare. Brenda Morris MD (Electronically Signed) Final Date: 13 December 2019 14:00 S
--- NOTE | 2019-12-13 03:17 | XRR_ITS ---
PROCEDURE INFORMATION: Exam: XR Chest, 1 View Exam date and time: 12/13/2019 3:18 AM Age: 49 years old Clinical indication: Device placement; Ett placement (vent status); Patient HX: Check for et placement TECHNIQUE: Imaging protocol: XR of the chest Views: 1 view. COMPARISON: CR (CHEST, ) 12/12/2019 10:59 PM FINDINGS: Tubes, catheters and devices: An endotracheal tube is placed with its tip at the level of the mili. The tip deviates somewhat in the direction of the right mainstem bronchus. Lungs: There are strandy and linear opacities present within the left mid and lower hemithorax possibly representing atelectasis. This may be secondary to the endotracheal tube placement. Pleural space: Unremarkable. No pleural effusion. No pneumothorax. Heart/Mediastinum: Unremarkable. No cardiomegaly. Bones/joints: Unremarkable. XR/XR chest 1V portable [id number] IMPRESSION: 1. Endotracheal tube tip is at the mili with the tip directed towards the right mainstem bronchus. 2. Probable left mid and lower atelectasis.
--- NOTE | 2019-12-13 04:20 | PC.NURSE ---
Admit Note Arrived from ER to ICU at 0417. Intubated with size 8 tube, 24 at lip on 50%fio2 with propofol infusing on arrival to unit. Lungs coarse/wheezes throughout. Sinus rhythm . Pt had lots of oral secretions, suctioning preformed at time. pt does not follow commands, withdrawls from suctioning and stimulation.
[2019-12-13 04:30] LABS: ABG PCO2 55.5 mmHg (35-45); ABG PH Result 7.35 (7.35-7.45)
[2019-12-13 04:31] LABS: Arterial Blood Gas Hematocrit 46.6 % (37-47); Base Excess ABG 3.2 mmol/L (-2.0-2.0); Blood Gas Allen Test pos; HCO3 ABG 30.5 mmol/L (22-26); Oxygen Device vent
[2019-12-13 05:14] LABS: Basophils % 0.2 %; Hematocrit 49.7 % (37.0-47.0); Hemoglobin 15.1 g/dL (11.5-15.3); Lymphocytes # 0.2 10^3/uL (0.8-4.8); Lymphocytes % 2.8 %; Mean Corpuscular HGB Conc 30.4 g/dL (30.0-36.0); Mean Corpuscular Hemoglobin 29.8 pg (28.0-34.0); Mean Corpuscular Volume 98.2 fL (81-99); Mean Platelet Volume 9.3 fL (7.4-10.4); Monocytes # 0.1 10^3/uL (0.2-0.9); Monocytes % 0.9 %; Neutrophils # 6.22 10^3/uL (1.8-7.7); Neutrophils % 95.3 %; Nucleated Red Blood Cells % 0 %; Platelet Count 300 10^3/cmm (130-400); Red Blood Count 5.06 10^6/uL (4.1-5.3); Red Cell Distribution Width 13.6 % (12.1-15.1); White Blood Count 6.5 10^3/uL (4.0-10.0)
--- NOTE | 2019-12-13 05:17 | XRR_ITS ---
PROCEDURE INFORMATION: Exam: XR Chest, 1 View Exam date and time: 12/13/2019 5:18 AM Age: 49 years old Clinical indication: Device placement; Ng tube; Patient HX: Check for og placement TECHNIQUE: Imaging protocol: XR of the chest Views: 1 view. COMPARISON: CR XR chest 1V portable [id number] 12/13/2019 3:14 AM FINDINGS: Tubes, catheters and devices: An endotracheal tube is placed with its tip approximately 2.9 cm from the mili. EKG leads overlie the chest. A nasogastric tube is present with its tip in the proximal stomach. Lungs: Increased linear and interstitial opacities are seen within the left hemithorax, findings that could represent a left-sided pneumonitis. Pleural space: Unremarkable. No pleural effusion. No pneumothorax. Heart/Mediastinum: Unremarkable. No cardiomegaly. Bones/joints: Unremarkable. XR/XR chest 1V portable [id number] IMPRESSION: 1. Increased linear and interstitial opacities in the left hemithorax could represent left-sided pneumonitis. 2. Endotracheal tube tip approximately 2.9 cm from the mili. 3. Nasogastric tube tip in proximal stomach.
--- NOTE | 2019-12-13 05:23 | PC.NURSE ---
OG tube placed beside ET tube. Immediate return of clear contents. Order for x-ray to verify placement. Patient tolerated well.
[2019-12-13 05:41] LABS: Alanine Aminotransferase 39 U/L (0-33); Albumin Level 3.7 g/dL (3.5-5.2); Alkaline Phosphatase 94 IU/L (35-105); Anion Gap 11.5 (5-19); Aspartate Amino Transferase 42 U/L (0-32); Blood Urea Nitrogen 22 mg/dL (6-20); Calcium 8.7 mg/dL (8.5-10.5); Carbon Dioxide 31 mmol/L (22-29); Chloride 96 mmol/L (98-107); Globulin 3.1 g/dL (1.3-4.6); Glomerular Filtration Rate 88.6 mL/min (90-130); Glucose 130 mg/dL (65-115); Osmolality Calculated 276 mOsm/kg (285-295); Potassium 4.5 mmol/L (3.5-5.1); Sodium 134 mmol/L (136-145); Total Bilirubin 0.5 mg/dL (0.15-1.2); Total Protein 6.8 g/dL (6.6-8.7)
[2019-12-13 05:46] LABS: Thyroid Stimulating Hormone 1.69 uIU/mL (0.27-4.20)
[2019-12-13] MEDS: piperacillin-tazobactam 3.375 GM in sodium chloride 0.9% (plus) 50 ML IV ×3 (06:08→22:44)
[2019-12-13] MEDS: propofol 1,000 MG/100 ML INJ 20.6 MG IV (07:51)
[2019-12-13] MEDS: ipratropium-albuterol 3 mL Neb INHALATION ×5 (08:01→23:29)
--- NOTE | 2019-12-13 09:09 | PM.PN ---
Subjective Subjective: Interval history: Patient is intubated and sedated. Her oxygen saturation dropped this morning and improved after suctioning. Her preliminary echo report showing normal EF. Vitals are stable. Vitals/I&O/Wt Last Vital Signs Temp 98.8 F 12/13/19 04:45 Pulse 84 12/13/19 08:15 Resp 13 12/13/19 08:02 BP 108/65 12/13/19 08:15 Pulse Ox 95 12/13/19 08:15 12/12/19 12/13/19 12/13/19 22:59 06:59 14:59 Intake Total 1.342 / 1.342 Output Total 650 / 650 Balance -648.658 / -648.658 Weight last 48 hrs Weight 76.204 kg Physical Exam Const: COMMON NORMALS: no acute distress Resp: COMMON NORMALS: normal respiratory effort OTHER: Coarse breath sounds throughout with minimal inspiratory and expiratory wheezing. Cardio: COMMON NORMALS: regular rate, regular rhythm and S2 normal heart sound present RATE: regular rate RHYTHM: regular rhythm HEART SOUNDS: S2 normal heart sound present OTHER: No lower extremity edema GI: COMMON NORMALS: Normal to inspection, nondistended, normoactive bowel sounds present, Soft to palpation and non-tender PALPATION: Yes Soft to palpation Neuro: COMMON NORMALS: no focal motor deficits Urinary Catheter Management^: Meza: Cath Placed During This Visit: yes Reason for Continuing Indwelling Catheter: Accurate Measurement of Urinary Output in Critically Ill Patients Urinary Catheter Date of Insertion: 12/13/19 Urinary Catheter Time of Insertion: 04:41 Data : 12/13/19 04:42 12/13/19 04:42 Micro: Microbiology 12/13/19 00:02 Blood Culture - Preliminary Blood SPECIMEN COLLECTED 12/12/19 23:30 Blood Culture - Preliminary Blood SPECIMEN COLLECTED A&P Assessment and plan (1) Acute hypercapnic respiratory failure: Status: Acute (2) Smoker: Status: Acute (3) Respiratory failure: Status: Acute (4) Malignant neoplasm of supraglottis: Status: Acute (5) New onset of congestive heart failure: Status: Acute Additional A&P Information Acute hypercapnic respiratory failure with underlying chronic hypoxic hypercarbic restaurant failure Recently she has been prescribed acetazolamide by neonatal icu coordinator Dr Wilson for metabolic alkalosis CT done recently ruled out PE showed scattered mucus plugging Copious secretions noticed No leukocytosis, she is afebrile, she is high risk for mucous plugging and pneumonia development I would start her on vancomycin and Zosyn considering her immunocompromise state For worsening mentation for her hypercapnia, will intubate in the ER Patient did not tolerate BiPAP very well New onset CHF No previous diagnosis of congestive heart failure, high BNP with mild clinical signs of CHF I would use low-dose Lasix at this point Echo in the morning EKG is not showing ischemic or infarctive changes, troponin not significantly high Metabolic alkalosis She has chronic metabolic alkalosis which has gotten worse due to acute hypercapnia I would avoid use of acetazolamide at this point because of her respiratory acidosis 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 Postobstructive process cannot be ruled out. Present on admission PLAN: Continue current monitoring and treatment including antibiotics. Awaiting official echo report. Patient likely had acute diastolic CHF. Currently appears to be compensated. Will keep patient intubated today and try weaning off sedation and extubation tomorrow. Full code DVT prophylaxis Lovenox GI prophylaxis Protonix Diet via feeding tube Attestations Medical Necessity Statement*: Patient with what appears metastatic malignancy and pneumonia while intubated requires close ICU monitoring and treatment Time Spent in Patient Care: 16 - 35 minutes Coding Level of Care Code Acute High Raw Sugar Boiler for [facility] Fwd Diagnoses Acute hypercapnic respiratory failure J96.02 Smoker F17.200 Respiratory failure J96.90 Malignant neoplasm of supraglottis C32.1 New onset of congestive heart failure I50.9
[2019-12-13] MEDS: FUROsemide 10 mg/mL SDV 2mL 20 MG IVP (10:42)
[2019-12-13] MEDS: propofol 1,000 MG/100 ML INJ 25 MG IV ×2 (12:22→14:21)
--- NOTE | 2019-12-13 16:29 | PC.NURSE ---
Patient's sister, Connie Avelar, arrived at ICU entrance asking to see patient. Explained visitor policy to her. Connie states she understands and will contact the patient's daughter.
--- NOTE | 2019-12-13 17:00 | PC.NURSE ---
Dr. De Jesus contacted by phone. Patient's daughter is here and would like to speak with the physician coordinating her care. Dr. Snow arrived on the unit and spoke with daughter in patient's room. While physician and daughter were at bedside patient became more responsive and responded with head nods and hand gestures to questions. Reported to physician patient has temp of 101 axillary.
[2019-12-13] MEDS: propofol 1,000 MG/100 ML INJ 30 MG IV (18:55)
[2019-12-13] MEDS: acetaminophen 325 mg Tablet 650 MG PO (20:32)
[2019-12-13] MEDS: propofol 1,000 MG/100 ML INJ 27.4 MG IV (22:45)
[2019-12-14] VITALS (27 sets, daily range): BP systolic 124–152; BP diastolic 67–88; PULSE 72–104; RESP 14–19; TEMP 36.7–37.3; O2SAT 90–98
[2019-12-14] MEDS: propofol 1,000 MG/100 ML INJ 27.4 MG IV ×2 (02:07→04:59)
--- NOTE | 2019-12-14 03:56 | XRR_ITS ---
PROCEDURE INFORMATION: Exam: XR Chest, 1 View Exam date and time: 12/14/2019 3:57 AM Age: 49 years old Clinical indication: Dyspnea; Additional info: Intubated TECHNIQUE: Imaging protocol: XR of the chest Views: 1 view. COMPARISON: CR XR chest 1V portable [id number] 12/13/2019 6:00 AM FINDINGS: Tubes, catheters and devices: Enteric tube extends to the left upper quadrant likely gastric body. Endotracheal tube tip resides 3.0 cm above the mili. Lungs: Retrocardiac left lower lobe parenchymal infiltrate or atelectasis. Diffuse interstitial thickening less likely involvement of vascular congestion. Pleural space: Unremarkable. No pleural effusion. No pneumothorax. Heart/Mediastinum: Cardiac size is stable. Bones/joints: Unremarkable. XR/XR chest 1V portable [id number] IMPRESSION: 1. Similar appearance of low-grade interstitial vascular congestion versus interstitial thickening. 2. Similar more focal suspected atelectasis left lower lung.
[2019-12-14] MEDS: ipratropium-albuterol 3 mL Neb INHALATION ×6 (04:00→23:53)
[2019-12-14 04:57] LABS: ABG PCO2 47.2 mmHg (35-45); ABG PH Result 7.43 (7.35-7.45); Base Excess ABG 5.9 mmol/L (-2.0-2.0); Blood Gas Allen Test Pos; Blood Gas Sample Site Radial, right; Blood Gas Sample Type Arterial; Blood Gas Tidal Volume 0.5; HCO3 ABG 31.4 mmol/L (22-26); Oxygen Device VENT; PO2 ABG 76.1 mmHg (80.0-100.0)
[2019-12-14] MEDS: piperacillin-tazobactam 3.375 GM in sodium chloride 0.9% (plus) 50 ML IV (06:20)
[2019-12-14 07:31] LABS: Hemoglobin 15.3 g/dL (11.5-15.3); Lymphocytes # 0.2 10^3/uL (0.8-4.8); Lymphocytes % 5.2 %; Mean Corpuscular HGB Conc 31.2 g/dL (30.0-36.0); Mean Corpuscular Hemoglobin 29.5 pg (28.0-34.0); Mean Corpuscular Volume 94.4 fL (81-99); Mean Platelet Volume 9.1 fL (7.4-10.4); Monocytes # 0.2 10^3/uL (0.2-0.9); Monocytes % 3.6 %; Neutrophils # 4.04 10^3/uL (1.8-7.7); Neutrophils % 90.8 %; Nucleated Red Blood Cells % 0 %; Platelet Count 262 10^3/cmm (130-400); Red Blood Count 5.19 10^6/uL (4.1-5.3); Red Cell Distribution Width 13.1 % (12.1-15.1); White Blood Count 4.5 10^3/uL (4.0-10.0)
[2019-12-14 07:48] LABS: Alanine Aminotransferase 30 U/L (0-33); Albumin Level 3.5 g/dL (3.5-5.2); Alkaline Phosphatase 85 IU/L (35-105); Aspartate Amino Transferase 31 U/L (0-32); Blood Urea Nitrogen 25 mg/dL (6-20); Calcium 9.5 mg/dL (8.5-10.5); Carbon Dioxide 28 mmol/L (22-29); Chloride 95 mmol/L (98-107); Globulin 2.8 g/dL (1.3-4.6); Glomerular Filtration Rate 75.9 mL/min (90-130); Glucose 141 mg/dL (65-115); Osmolality Calculated 275 mOsm/kg (285-295); Sodium 133 mmol/L (136-145); Total Bilirubin 0.4 mg/dL (0.15-1.2); Total Protein 6.3 g/dL (6.6-8.7)
[2019-12-14 08:45] LABS: Anion Gap 13.3 (5-19); Potassium 3.3 mmol/L (3.5-5.1)
--- NOTE | 2019-12-14 11:28 | P.PN_ITS ---
Subjective Subjective: Interval history: Patient is intubated and able to communicate. She denies shortness of breath or chest pain. Denies abdominal pain. Her ET tube secretions much improved and she is doing well on pressure support. Vitals/I&O/Wt Last Vital Signs Temp 98.1 F 12/14/19 10:08 Pulse 85 12/14/19 11:18 Resp 18 12/14/19 11:17 BP 144/85 12/14/19 06:19 Pulse Ox 95 12/14/19 11:17 12/13/19 12/14/19 12/14/19 22:59 06:59 14:59 Intake Total 500 / 942.626 321.794 / 1264.420 Output Total 1415 / 1415 500 / 1915 Balance -915 / -472.374 -178.206 / -650.580 Weight last 48 hrs Weight 76.204 kg Physical Exam Const: COMMON NORMALS: no acute distress Resp: COMMON NORMALS: normal respiratory effort OTHER: Improved breath sounds throughout with no wheezing or rails. Cardio: COMMON NORMALS: regular rate, regular rhythm and S2 normal heart sound present RATE: regular rate RHYTHM: regular rhythm HEART SOUNDS: S2 normal heart sound present OTHER: No lower extremity edema GI: COMMON NORMALS: Normal to inspection, nondistended, normoactive bowel sounds present, Soft to palpation and non-tender PALPATION: Yes Soft to palpation Neuro: COMMON NORMALS: no focal motor deficits Urinary Catheter Management^: Meza: Cath Placed During This Visit: yes Reason for Continuing Indwelling Catheter: Accurate Measurement of Urinary Output in Critically Ill Patients Urinary Catheter Date of Insertion: 12/13/19 Urinary Catheter Time of Insertion: 04:41 Data : 12/14/19 07:16 12/14/19 07:16 Micro: Microbiology 12/12/19 23:30 Blood Culture - Preliminary Blood Gram positive cocci 12/13/19 00:02 Blood Culture - Preliminary Blood NEGATIVE TO DATE A&P Assessment and plan (1) Acute hypercapnic respiratory failure: Status: Acute (2) Smoker: Status: Acute (3) Respiratory failure: Status: Acute (4) Malignant neoplasm of supraglottis: Status: Acute (5) New onset of congestive heart failure: Status: Acute Additional A&P Information Acute hypercapnic respiratory failure with underlying chronic hypoxic hypercarbic restaurant failure Recently she has been prescribed acetazolamide by sewing inspector Dr Wilson for metabolic alkalosis CT done recently ruled out PE showed scattered mucus plugging Copious secretions noticed No leukocytosis, she is afebrile, she is high risk for mucous plugging and pneumonia development I would start her on vancomycin and Zosyn considering her immunocompromise state For worsening mentation for her hypercapnia, will intubate in the ER Patient did not tolerate BiPAP very well New onset CHF No previous diagnosis of congestive heart failure, high BNP with mild clinical signs of CHF I would use low-dose Lasix at this point Echo in the morning EKG is not showing ischemic or infarctive changes, troponin not significantly high Metabolic alkalosis She has chronic metabolic alkalosis which has gotten worse due to acute hypercapnia I would avoid use of acetazolamide at this point because of her respiratory acidosis 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 Postobstructive process cannot be ruled out. Present on admission PLAN: Proceed with extubation. Awaiting blood culture results. Currently growing 1 out of 4 bottles gram- positive cocci. This appears to be a contamination but for now we will continue vancomycin. We will transition patient from Zosyn to Levaquin. Full code DVT prophylaxis Lovenox GI prophylaxis Protonix Diet via feeding tube Attestations Medical Necessity Statement*: Patient with respiratory failure requires close ICU monitoring and treatment. Time Spent in Patient Care: 16 - 35 minutes Coding Level of Care Code Acute Ceramic Capacitor Processor for [facility] Fwd Diagnoses Acute hypercapnic respiratory failure J96.02 Smoker F17.200 Respiratory failure J96.90 Malignant neoplasm of supraglottis C32.1 New onset of congestive heart failure I50.9
[2019-12-14 12:06] LABS: Vancomycin Trough 24.6 ug/mL (10-15)
[2019-12-14] MEDS: levofloxacin-dextrose 5 % 750 MG/150 ML PREMIX 100 MG IV (12:51)
[2019-12-14] MEDS: FUROsemide 10 mg/mL SDV 2mL 20 MG IVP (12:51)
--- NOTE | 2019-12-14 13:25 | PC.NURSE ---
SEDATION & FEEDING TURNED OFF THIS MORNING IN ANTICIPATION FOR EXTUBATION. PT AWAKE/ALERT RT EXTUBATED PT AROUND 1030. PT TOLERATED WELL. PLACED ON 2L/NC THAT SHE WEARS AT HOME. REQUEST TO HAVE PEREZ REMOVED & WOULD LIKE TO GO HOME.
--- NOTE | 2019-12-14 18:16 | PC.NURSE ---
Patient's home medications placed in the [facility]
--- NOTE | 2019-12-14 18:39 | PC.NURSE ---
Patient would like the following people added to her PHI Eli ramírez daughter Connie Medina sister Imelda Tim mother.
[2019-12-15] VITALS (21 sets, daily range): BP systolic 131–157; BP diastolic 77–92; PULSE 84–105; RESP 16–22; TEMP 37.2; O2SAT 89–100
[2019-12-15] MEDS: ipratropium-albuterol 3 mL Neb INHALATION ×3 (03:46→11:02)
[2019-12-15] MEDS: potassium chloride ER 10 mEq Tablet 40 MEQ PO (08:48)
--- NOTE | 2019-12-15 10:07 | P.DS_ITS ---
Discharge Providers Date of Admission: 12/13/19 00:35 Date of Discharge: December 15, 2019 Attending Provider at Admission: Abdi Prasad MD Attending Provider at Discharge: Alcides De Jesus MD Primary Care Provider: Joseline Avendaño Diagnoses at Discharge Discharge Diagnosis (1) Acute hypercapnic respiratory failure: Status: Acute Problem details: Resolved (2) Smoker: Status: Acute (3) Respiratory failure: Status: Acute Problem details: Resolved. (4) Malignant neoplasm of supraglottis: Status: Acute Problem details: Status post radiation. Now with potential metastatic involvement.(Left costophrenic 8 mm noncalcified pulmonary nodule) (5) New onset of congestive heart failure: Status: Acute Problem details: Ruled out. Reason for Visit Reason for Visit: low o2 Hospital Course Discharge Summary: Patient with supraglottic malignancy and concern for fu rther metastatic involvement of the liver and bones presented with acute respiratory failure. She had evidence of mucous plugging and suspected to have pneumonia. She was intubated initially and after extensive suctioning we were able to extubate patient. She is doing great and this morning reports feeling back to her baseline and wants to go home. She does not want to stay in the hospital for at least 1 more day to make sure she continues to improve. She remains afebrile with normal white blood cell count. I will prescribe Levaquin for 5 more days. She is using 2 L of oxygen at home at night only and I will perform home O2 eval prior to discharge to make sure her oxygen requirement did not increase. She is saturating in the mid 90s on room air during my evaluation. She initially felt to be in new onset CHF. Her EF on echocardiogram was normal with normal diastolic function. Patient does take Lasix at home for fluid retention and will continue with the same. Heart failure diagnosis felt unlikely. Patient reports that she will absolutely not smoke anymore. She does not want any pharmacological help. She thinks she can quit without. Reports that this was her wake-up call and she is absolutely done smoking. She did not appear to be in acute COPD exacerbation. I think mucous plugging and pneumonia likely the cause of patient's respiratory failure. Patient will follow-up with Dr. Kelly on December 18 as scheduled. Patient already seeing slat basket maker helper for pulmonary nodule with plan to repeat imaging in the near future. Physical Exam Const: COMMON NORMALS: no acute distress and patient oriented x3 Resp: COMMON NORMALS: normal respiratory effort and clear to auscultation bilaterally (But overall decreased air movement.) AUSCULTATION: clear to auscultation bilaterally (But overall decreased air movement.) Cardio: COMMON NORMALS: regular rate, regular rhythm and S2 normal heart sound present RATE: regular rate RHYTHM: regular rhythm HEART SOUNDS: S2 normal heart sound present OTHER: No lower extremity edema GI: COMMON NORMALS: Normal to inspection, nondistended, normoactive bowel sounds present, Soft to palpation and non-tender PALPATION: Yes Soft to palpation Neuro: COMMON NORMALS: patient oriented x3 and no focal motor deficits Urinary Catheter Management^: Meza: Cath Placed During This Visit: yes Reason for Continuing Indwelling Catheter: Accurate Measurement of Urinary Output in Critically Ill Patients Urinary Catheter Date of Insertion: 12/13/19 Urinary Catheter Time of Insertion: 04:41 Discharge Data Data Completed and Pending: Completed Studies During Hospitalization Category Date Time Status XR chest 1V jumana ble [id number] Routine Exams 12/13/19 05:17 Completed XR chest 1V jumana ble [id number] Routine Exams 12/14/19 03:56 Completed XR chest 1V jumana ble [id number] Stat Exams 12/13/19 03:17 Completed XR chest 1V jumana ble [id number] Urgent Exams 12/12/19 22:53 Completed CV echo complete* [id number] Routine Ultrasound 12/13/19 03:05 Completed Pending at discharge Category Date Time Status Blood Culture Sta t Lab 12/12/19 23:30 Results Sputum Culture an d Gram Stain Stat Lab 12/12/19 22:53 Uncollected Vancomycin Trough Routine Lab 12/15/19 17:00 Ordered Labs from last 24 hours 12/14/19 12/13/19 12/12/19 10:08 03:49 23:14 Methemoglobin Not Reportable Wreath Machine Operator ID Jh Vancomycin Trough 24.6 H Vitals: Last Vital Signs Temp 98.9 F 12/15/19 04:48 Pulse 93 12/15/19 08:25 Resp 17 12/15/19 08:25 BP 139/78 12/15/19 07:00 Pulse Ox 99 12/15/19 08:25 Discharge Plan Discharge Patient Disposition: Home Condition: Stable Prescriptions: New levofloxacin [Levaquin] 750 mg tablet 750 mg PO DAILY 5 Days Qty: 5 RF: 0 Continued ipratropium-albuterol 0.5 mg-3 mg(2.5 mg base)/3 mL solution for nebulization 3 ml INHALATION Q4H PRN (Reason: Shortness Of Breath) RF: 0 budesonide-formoterol [Symbicort] 80-4.5 mcg/actuation HFA aerosol inhaler 2 puff INHALATION BID Qty: 10.2 RF: 3 montelukast 10 mg tablet 10 mg PO QDAY RF: 0 levocetirizine 5 mg tablet 5 mg PO DAILY RF: 0 fluconazole 100 mg Tablet 100 mg PO DAILY RF: 0 metoprolol tartrate 25 mg Tablet 12.5 mg PO BID RF: 0 furosemide 40 mg Tablet 40 mg PO DAILY RF: 0 potassium chloride 10 mEq Tablet Extended Release 20 meq PO DAILY RF: 0 Discharge Orders: Discharge Order (Routine); Ordered 12/15/19 Ordered By: Alcides De Jesus Referrals: Siobhan [Outside] Joseline Avendaño [Primary Care Provider] - 4-7 days Discharge Diet: Usual diet Discharge Activity: Increase activity as tolerated Activity Restrictions/Additional Instructions: Please call your doctor or present to emergency department if your condition worsens or you develop diarrhea, lightheadedness, fatigue or see blood in your stool or black stool. Please follow-up with Dr. Kelly on December 18 as scheduled and pulmonary physician regarding pulmonary nodule as was previously planned. Discharge Attestations Time Spent in Discharge Care*: greater than 30 min Quality Metrics Clinical Quality Measures During this hospital stay, did patient experience: None Coding Level of Care Code Acute Sofa Cover Inspector for g Fwd Exam Detailed Diagnoses Acute hypercapnic respiratory failure J96.02 Smoker F17.200 Respiratory failure J96.90 Malignant neoplasm of supraglottis C32.1 New onset of congestive heart failure I50.9
[2019-12-15] MEDS: FUROsemide 10 mg/mL SDV 2mL 20 MG IVP (11:26)
[2019-12-15] MEDS: levofloxacin-dextrose 5 % 750 MG/150 ML PREMIX 150 MG IV (11:26)
--- NOTE | 2019-12-15 12:20 | PC.RESP ---
Pulmonary Rehab information sent to patient.
--- NOTE | 2019-12-15 13:30 | PC.NURSE ---
Discharge IV removed and covered with 2x2 and coban. Discharge instructions given and patient verbalized understanding. New prescription for Levaquin sent to pharmacy. Patient escorted out via wheelchair to patient's son waiting in ER parking lot. All belongings sent with patient.
--- NOTE | 2019-12-24 10:49 | PC.SOCIAL ---
Micro Corrected result received by Bree in micro and notified Dr De Jesus. Probable Contaminants. Notified patient of the multiple organisms but may be contaminants. She has seen her PCP. Asked Patient to review with PCP the results. Requested the PCP to review and follow up with patient via fax. Faxed documents along with H and P to Joseline Avendaño after verifying with patient this is who she sees. Fax confirmation received that information was faxed successfully and called clinic ahead of time to notify will be sending culture results for provider to follow up on. Patient indicates during our call she has been feeling better and has no concerns at this time.
== END 2019-12-15 13:34 | disposition home or self-care (01) | DRG 189 ==
LOC: ER 22:42 → ICU 12-13 00:50
PROVIDERS: Emergency Medicine; Admitting Provider Internal Medicine; PCP Nurse Practitioner Family; Visit Provider Internal Medicine
DX: J96.02 Acute respiratory failure with hypercapnia (principal); J18.9 Pneumonia, unspecified organism; F17.210 Nicotine dependence, cigarettes, uncomplicated; C32.1 Malignant neoplasm of supraglottis; Z79.899 Other long term (current) drug therapy; Z99.81 Dependence on supplemental oxygen; J44.9 Chronic obstructive pulmonary disease, unspecified; Z11.59 Encounter for screening for other viral diseases; I10 Essential (primary) hypertension; Z87.891 Personal history of nicotine dependence
CPT/HCPCS: 12345; 31500; 36415; 36600; 51702; 71045; 80053; 80202; 82803; 82805; 83605; 83880; 84443; 84484; 85025; 87040; 87070; 87077; 87186; 87205; 93005; 93306; 94002; 94003; 94640; 94660; 94799; 96365; 96367; 96375; 99284; 99291; A4570; J0330; J1940; J1956; J2250; J2543; J2704; J2930; J3010; J3370; J3490; J7050

== ENCOUNTER → 2020-01-12 11:32 | Outpatient (BNVA) | payer MEDICAID, SELFPAY | PROVIDERS: PCP Nurse Practitioner Family; Visit Provider Internal Medicine | DX: Z11.59 Encounter for screening for other viral diseases (principal) | CPT/HCPCS: 87635 ==

== ENCOUNTER 2020-01-15 13:40 | Outpatient (CLI) | payer MEDICAID, SELFPAY ==
[2020-01-15 14:24] VITALS: BP 139/98; BP 147/96
--- NOTE | 2020-01-15 14:30 | PFTS_ITS ---
Date of Study:01/15/20 Date of Dictation: MECHANICS: Forced vital capacity (FVC) is reduced. Forced expiratory volume in one second (FEV1) is reduced. FEV1/FVC is reduced. FLOW VOLUME LOOP: There is no early peak in the expiratory flow. Although not completely typical, a fixed airway obstruction cannot be ruled out based on the flow volume loop. LUNG VOLUMES: Total lung capacity (TLC) is increased. Residual volume (RV) is increased. DIFFUSING CAPACITY FOR CARBON MONOXIDE: Mildly reduced. INTERPRETATION: The pulmonary function tests are consistent with severe airflow obstruction. There is no significant postbronchodilator response. Lung volumes are consistent with hyperinflation and air trapping. Gas exchange (DLCO) is mildly reduced. The reduction in gas exchange is minimal compared to the profound airflow obstruction on spirometry. Given the shape of the flow volume loop clinically correlate for fixed airway obstruction. MTDD
--- NOTE | 2020-01-15 14:40 | USCV_ITS ---
Tyra Sharon Age: 49 Gender: F : 1970 Exam Date: 01/15/2020 15:03 Ordering Phys: Bonilla Wilson MD Technologist: Zaida Scott Exam Location: [facility] [place] Indication: SOB BP: 157 / 87 HR: 105 Rhythm: Sinus Technical Quality: Adequate MEASUREMENTS (Male / Female) Normal Values 2D ECHO LV Diastolic Diameter PLAX 5.3 cm 4.2 - 5.9 / 3.9 - 5.3 cm LV Systolic Diameter PLAX 4.2 cm LV Chamber Size 4.6 cm IVS Diastolic Thickness 1.2 cm 0.6 - 1.0 / 0.6 - 0.9 cm IVS Systolic Thickness 1.8 cm LVPW Diastolic Thickness 0.7 cm 0.6 - 1.0 / 0.6 - 0.9 cm LVPW Systolic Thickness 1.3 cm RV Chamber Size 3.7 cm LVOT Diameter 2.0 cm LV Ejection Fraction 2D Teich 42.8 % LV Ejection Fraction MOD 2C 29.1 % LV Ejection Fraction 2C AL 40.2 % LA Diameter 4.3 cm LA Width 3.5 cm LA Height 4.3 cm RA Width 4.5 cm RA Height 4.9 cm Aorta at Sinotubular Diameter 2.5 cm M-MODE LV Diastolic Diameter MM 6.4 cm 4.2 - 5.9 / 3.9 - 5.3 cm LV Systolic Diameter MM 4.6 cm LV Ejection Fraction MM Teich 51.9 % IVS Diastolic Thickness MM 0.7 cm 0.6 - 1.0 / 0.6 - 0.9 cm IVS Systolic Thickness MM 1.0 cm LVPW Diastolic Thickness MM 1.0 cm 0.6 - 1.0 / 0.6 - 0.9 cm LVPW Systolic Thickness MM 1.4 cm RV Diastolic Diameter MM 1.6 cm Aortic Annulus Diameter 2.5 cm LA Ao Ratio MM 1.8 MV E Point Septal Separation 0.6 cm DOPPLER AV Peak Velocity 236.0 cm/s LVOT Peak Velocity 136.0 cm/s AV Area Cont Eq vti 1.8 cm squared AV Area Cont Eq pk 1.8 cm squared MV Area PHT 5.9 cm squared Mitral E to A Ratio 0.8 MV E' Velocity 15.0 cm/s Mitral E to MV E' Ratio 8.2 Mitral E to LV E' Lateral Ratio 6.9 Mitral E to LV E' Septal Ratio 10.1 TR Peak Velocity 281.0 cm/s TR Peak Gradient 31.6 mmHg TR Mean Velocity 244.1 cm/s TR Mean Gradient 24.0 mmHg TR Velocity Time Integral 78.3 cm TV Peak E Velocity 90.0 cm/s Right Atrial Pressure 3.0 mmHg Pulmonary Artery Systolic Pressu 34.6 mmHg PV Peak Velocity 94.0 cm/s FINDINGS Left Ventricle Normal left ventricular size, systolic function and wall thickness, with no regional wall motion abnormalities. Left ventricular ejection fraction is estimated at 65 %. Normal diastolic function. Right Ventricle Normal right ventricular size and systolic function. Right ventricular systolic pressure 34.6 mmHg. Right Atrium Normal right atrial size Left Atrium Upper normal left atrial size. Mitral Valve Mildly thickened mitral valve. No mitral valve stenosis. Mild mitral valve regurgitation. Aortic Valve Structurally normal trileaflet aortic valve. No aortic valve stenosis. No aortic valve regurgitation. Tricuspid Valve Structurally normal tricuspid valve. No tricuspid valve stenosis. Trace to mild tricuspid valve regurgitation. Pulmonic Valve Structurally normal pulmonic valve. Trace pulmonary valve regurgitation. Pericardium No pericardial effusion. Aorta Normal size aortic root. CONCLUSIONS 1. Normal left ventricular size, systolic function and wall thickness, with no regional wall motion abnormalities. Left ventricular ejection fraction is estimated at 65 %. Normal diastolic function. 2. Pulmonary artery pressure estimated at 36 mm Hg. 3. Mild mitral valve regurgitation. 4. When compared to previous echocardiogram dated 12/13/2019, there may not have been any significant change Brenda Morris MD (Electronically Signed) Final Date: 18 January 2020 17:47 S
== END 2020-01-15 13:41 | disposition home or self-care (01) ==
LOC: RT 13:41
PROVIDERS: PCP Nurse Practitioner Family; Visit Provider Internal Medicine Pulmonary Disease
DX: F17.200 Nicotine dependence, unspecified, uncomplicated (principal); R91.1 Solitary pulmonary nodule; J44.9 Chronic obstructive pulmonary disease, unspecified; R06.02 Shortness of breath; I34.0 Nonrheumatic mitral (valve) insufficiency
CPT/HCPCS: 93306; 94060; 94618; 94726; 94729; J7611

== ENCOUNTER 2020-03-03 11:43 | Outpatient (CLI) | payer MEDICAID, SELFPAY ==
--- NOTE | 2020-03-03 11:30 | CT_ITS ---
WS: [id number] CT CHEST TECHNIQUE: Noncontrast CT of the chest with coronal and sagittal reformatted images. CLINICAL INFORMATION: follow up on lung nodule COMPARISON: CTA December 03, [address] October 25, 2019 DLP: 739.[address] scans at [facility] use at least one of these dose optimization techniques: automat ed exposure control; mA and/or kV adjustment per patient size (includes targeted exams where dose is matched to clinical indication); or iterative reconstruction. FINDINGS: Stable left costophrenic angle 7 mm pulmonary nodule at the costophrenic angle along the diaphragm is unchanged. No new pulmonary parenchymal abnormalities. Mild chronic emphysematous changes. Subsegmen amarjit atelectasis in the right greater than left lung base. No mediastinal or hilar lymphadenopathy. Ao rtic calcification. Small esophageal hiatal hernia. Adrenal glands are normal. No axillary lymphadeno dolores. Mild thoracic kyphosis. Mild compression with anterior wedging in the upper thoracic spine appears pr ogressed since December 03, 2019 T6 and T7. Mild compression superior endplate T6 with anterior wedging h as progressed slightly. Mild biconcave compression at T7 is new from previous. Minimal compression at T5. Mild compression inferior endplate at T4 is new. Recommend correlation for upper back pain. No r etropulsion. Chronic left seventh rib fracture callus formation is unchanged. IMPRESSION: 1. Stable 8 mm pulmonary nodule left costophrenic angle. Recommend 12 month follow-up. 2. Mild chronic emphysematous changes. 3. Chronic seventh left rib fracture with callus formation unchanged. 4. New mild compression of several upper thoracic vertebral bodies at T4 T5 T6 and T7 with anterior wedging. No retropulsion.
== END 2020-03-03 11:44 | disposition home or self-care (01) ==
LOC: RADWPI 11:47
PROVIDERS: PCP Nurse Practitioner Family; Visit Provider Internal Medicine Pulmonary Disease
DX: R91.1 Solitary pulmonary nodule (principal); S22.32XA Fracture of one rib, left side, initial encounter for closed fracture; X58.XXXA Exposure to other specified factors, initial encounter
CPT/HCPCS: 71250

== ENCOUNTER → 2020-03-16 12:08 | Outpatient (BNVA) | payer MEDICAID, SELFPAY | PROVIDERS: PCP Nurse Practitioner Family; Visit Provider Nurse Practitioner Family | DX: R06.02 Shortness of breath (principal); B37.0 Candidal stomatitis; R49.0 Dysphonia; C14.0 Malignant neoplasm of pharynx, unspecified | CPT/HCPCS: 71046 ==

== ENCOUNTER → 2022-12-14 10:39 | Outpatient (BNVA) | payer MEDICARE, MEDICAID, SELFPAY | PROVIDERS: PCP Nurse Practitioner Family; Visit Provider Nurse Practitioner Family | DX: R06.02 Shortness of breath (principal) | CPT/HCPCS: 71046 ==

== ENCOUNTER → 2023-01-02 13:46 | Outpatient (BNVA) | payer MEDICARE, MEDICAID, SELFPAY | PROVIDERS: PCP Nurse Practitioner Family; Referring Provider Nurse Practitioner Family; Visit Provider Internal Medicine Cardiovascular Disease | DX: R60.9 Edema, unspecified (principal); Z78.9 Other specified health status; J44.1 Chronic obstructive pulmonary disease with (acute) exacerbation; I10 Essential (primary) hypertension; C32.1 Malignant neoplasm of supraglottis; Z87.891 Personal history of nicotine dependence | CPT/HCPCS: 99203 ==

== ENCOUNTER 2023-01-17 11:41 | Outpatient (CLI) | payer MEDICARE, MEDICAID, SELFPAY ==
--- NOTE | 2023-01-17 12:15 | USCV_ITS ---
Moises Mary Age: 52 Gender: F : 1970 Exam Date: 01/17/2023 11:59 Ordering Phys: Krzysztof Nicole MD ([email or web address]) Technologist: Nereida Woodall Exam Location: [facility] [place] Indication: EDEMA BP: 120 / 72 HR: 108 Rhythm: Sinus Technical Quality: Technically difficult study MEASUREMENTS (Male / Female) Normal Values 2D ECHO LV Diastolic Diameter PLAX 3.8 cm 4.2 - 5.9 / 3.9 - 5.3 cm LV Systolic Diameter PLAX 2.7 cm LV Chamber Size 3.6 cm IVS Diastolic Thickness 1.0 cm 0.6 - 1.0 / 0.6 - 0.9 cm IVS Systolic Thickness 1.4 cm LVPW Diastolic Thickness 1.0 cm 0.6 - 1.0 / 0.6 - 0.9 cm LVPW Systolic Thickness 1.3 cm RV Chamber Size 3.5 cm LVOT Diameter 2.0 cm LV Ejection Fraction 2D Teich 55.6 % LV Ejection Fraction MOD 2C 28.7 % LV Ejection Fraction 2C AL 31.8 % LA Diameter 2.7 cm LA Width 2.4 cm LA Height 3.5 cm RA Width 2.0 cm RA Height 3.0 cm Aorta at Sinotubular Diameter 2.5 cm M-MODE Aortic Annulus Diameter 3.1 cm LA Ao Ratio MM 1.1 MV E Point Septal Separation 0.4 cm DOPPLER AV Peak Velocity 162.7 cm/s LVOT Peak Velocity 85.3 cm/s AV Area Cont Eq vti 1.9 cm squared AV Area Cont Eq pk 1.7 cm squared MV Area PHT 9.2 cm squared Mitral E to A Ratio 0.7 MV E' Velocity 31.0 cm/s Mitral E to MV E' Ratio 8.0 Mitral E to LV E' Lateral Ratio 8.0 Mitral E to LV E' Septal Ratio 8.0 TR Peak Velocity 150.2 cm/s TR Peak Gradient 9.0 mmHg TR Mean Velocity 107.5 cm/s TR Mean Gradient 5.9 mmHg TR Velocity Time Integral 28.8 cm TV Peak E Velocity 50.0 cm/s Right Atrial Pressure 3.0 mmHg Pulmonary Artery Systolic Pressu 12.0 mmHg RV Acceleration Time 0.1 s RV Ejection Time 0.3 s RV AcT/ET 0.4 FINDINGS Left Ventricle Left ventricle is normal size. LV systolic function is normal with EF of 50-55%. No regional wall motion abnormalities. Grade 1 diastolic dysfunction Right Ventricle Normal in size and function Right Atrium Normal in size Left Atrium Normal in size Mitral Valve Structurally normal mitral valve. Aortic Valve Structurally normal aortic valve. No significant stenosis or regurgitation. Tricuspid Valve Trace tricuspid regurgitation. Insufficient TR jet to calculate RVSP. Pulmonic Valve Not well visualized Pericardium Normal Aorta Normal in size IVC Dilated CONCLUSIONS LV systolic function is normal with EF of 50 to 55%. Grade 1 diastolic dysfunction Trace tricuspid regurgitation IVC is dilated. Compared to prior echocardiogram from 12/2019, no significant changes are seen Isaac Estrada MD (Electronically Signed) Final Date: 31 January 2023 17:53 S
== END 2023-01-17 11:42 | disposition home or self-care (01) ==
PROVIDERS: PCP Nurse Practitioner Family; Visit Provider Internal Medicine Cardiovascular Disease
DX: I07.1 Rheumatic tricuspid insufficiency (principal); R06.02 Shortness of breath
CPT/HCPCS: 93306